=== PATIENT | male | born 1945 | race Caucasian/White ===

== ENCOUNTER 2016-05-04 15:23 | Emergency (ER) | payer MEDICARE, MEDICAID ==
[2016-05-04 15:23] VITALS: BMI 27.3
[2016-05-04 15:31] VITALS: PULSE 71; RESP 20; O2SAT 96
[2016-05-04] MEDS ORDERED: Albuterol-Ipratrop 3 mg / 0.5 (3 ml) UD IH STA (15:50)
[2016-05-04] MEDS ORDERED: Albuterol 0.083% Inhal Sol (2.5 mg/3 mL) UD IH STA (15:50)
[2016-05-04] MEDS ORDERED: Promethazine/Cod 6.25mg-10mg/5ml Syr UD PO STA (15:51)
--- NOTE | 2016-05-04 15:55 | C.PDOC ---
History Of Present Illness 71 y/o male w/PMHx of COPD presents to the ED for evaluation of URI symptoms for the past 2 weeks. Pt reports nasal congestion, productive cough with yellow sputum gradually worsen for past few days. Pt denies high fever, chills, SOB, dyspnea, wheezing, CP, palpitation, dyspnea, abdominal pain, nausea, vomiting or any other complaints. Pt is currently being evaluated by Dr Aguilar for chronic sinusitis, last antibiotic taken 1 month ago. Time Seen by Provider: 05/04/16 15:42 Chief Complaint (Nursing): Cough, Cold, Congestion History Per: Patient History/Exam Limitations: no limitations Onset/Duration Of Symptoms: Days Current Symptoms Are (Timing): Still Present Sick Contacts (Context): None Associated Symptoms: Cough, Nasal Congestion. denies: Nausea, Vomiting Severity: Mild Recent travel outside of the [place]: No Past Medical History Reviewed: Historical Data, Nursing Documentation, Vital Signs Vital Signs: Last Vital Signs Temp 97.5 F L 05/04/16 15:30 Pulse 71 05/04/16 15:30 Resp 20 05/04/16 15:30 BP 131/78 05/04/16 15:30 Pulse Ox 96 05/04/16 16:03 - Medical History PMH: CAD, Cardia Arrhythmia, Fractures (left arm), HTN, Hypercholesterolemia Surgical History: Coronary Stent (x4) - [facility] Procedures COLONOSCOPY (04/05/14) CORONAR ARTERIOGR-2 CATH (09/16/14) LEFT HEART CARDIAC CATH (09/16/14) LT HEART ANGIOCARDIOGRAM (09/16/14) TETANUS TOXOID ADMINIST (08/17/14) Family History: States: Unknown Family Hx - Social History Hx Tobacco Use: Yes Hx Alcohol Use: Yes (quit 2000) Hx Substance Use: No - Immunization History Hx Tetanus Toxoid Vaccination: Yes Hx Influenza Vaccination: No Hx Pneumococcal Vaccination: No Review Of Systems Except As Marked, All Systems Reviewed And Found Negative. Constitutional: Negative for: Fever, Chills Respiratory: Negative for: Shortness of Breath, Wheezing Gastrointestinal: Negative for: Nausea, Vomiting, Abdominal Pain Physical Exam - Physical Exam Appears: Non-toxic, No Acute Distress Skin: Warm, Dry, No Rash Head: Normacephalic Eye(s): bilateral: Normal Inspection Ear(s): Bilateral: Normal Nose: Discharge (B/L nasal congestion B/L. Mild tenderness overlying B/L maxillary sinuses. No edema, no erythema.) Oral Mucosa: Moist, No Drooling Tongue: Normal Appearing Throat: Normal, No Erythema, No Drooling Neck: Normal, Normal ROM, Supple Chest: Symmetrical Cardiovascular: Rhythm Regular, No Murmur Respiratory: No Decreased Breath Sounds, No Accessory Muscle Use, No Rales, No Rhonchi, No Stridor, Wheezing (right basilar expiratory wheezing) Gastrointestinal/Abdominal: Normal Exam, Soft, No Tenderness Back: Normal Inspection Extremity: Normal ROM, No Pedal Edema Extremity: Bilateral: Atraumatic Neurological/Psych: Oriented x3, Normal Speech ED Course And Treatment O2 Sat by Pulse Oximetry: 96 (on room air) Pulse Ox Interpretation: Normal Progress Note: Plan: CXR, nebulizer treatment, prednisone, promethazine/ codeine. On re-eavluation, pt is afebrile, hemodynamicaly stable. Non-toic. Pt reports, mod improvement in sx. PulsEOx 96% RA. ENT: no acute findings. Neck: (-) meningeal sign. Lungs: CTA B/L. BS equal B/L. ABd: benign. CXR- review and appears similar to previous study. Results discussed with pt. Pt has clinical findings c/w bronchitis, asthma exacerbation. Pt advised. ref to F/u with PMD In 2-3 days for re-eval. return if any new changes. Disposition Counseled Patient/Family Regarding: Studies Performed, Diagnosis, Need For Followup, Rx Given - Disposition Referrals: Roge Saucedo, DNP, DRESS SHOE INSPECTOR [Advanced Practice Nurse] - Disposition: HOME/ ROUTINE Disposition Time: 17:12 Condition: STABLE Additional Instructions: Encourage fluids Take medication as prescribed Follow up with PMD In 2-3 days for re-evaluation. Return to ED if any worsening or new changes. Prescriptions: Prednisone [Deltasone] 20 mg PO DAILY #3 tablet Benzonatate [Tessalon Perle] 100 mg PO TID #14 capsule Azithromycin [Zithromax] 250 mg PO DAILY #4 tab Instructions: Acute Bronchitis (ED) - Clinical Impression Clinical Impression: Bronchitis - PA / SYNTHETIC DEPARTMENT SUPERVISOR / Resident Statement MD/DO has reviewed & agrees with the documentation as recorded. - Scribe Statement The provider has reviewed the documentation as recorded by the Zia Estevez All medical record entries made by the Zia were at my direction and personally dictated by me. I have reviewed the chart and agree that the record accurately reflects my personal performance of the history, physical exam, medical decision making, and the department course for this patient. I have also personally directed, reviewed, and agree with the discharge instructions and disposition.
[2016-05-04] MEDS ORDERED: Promethazine/Cod 6.25mg-10mg/5ml Syr UD ONE (16:14)
[2016-05-04] MEDS ORDERED: Albuterol 0.083% Inhal Sol (2.5 mg/3 mL) UD ONE (16:24)
[2016-05-04] MEDS ORDERED: Albuterol-Ipratrop 3 mg / 0.5 (3 ml) UD ONE (16:25)
--- NOTE | 2016-05-04 16:40 | RAD ---
HISTORY: Cough COMPARISON: 01/30/2015 TECHNIQUE: Chest PA and lateral FINDINGS: LUNGS: Scarring versus atelectasis in the left lung base. PLEURA: No significant pleural effusion identified. No pneumothorax apparent. CARDIOVASCULAR: Normal. OSSEOUS STRUCTURES: Old rib fracture involving the 6th posterior rib on the left.The osseous structures demonstrate degenerative changes. VISUALIZED UPPER ABDOMEN: Upper abdomen is suboptimally evaluated. OTHER FINDINGS: None. IMPRESSION: Scarring versus atelectasis in the left lung base.
[2016-05-04 17:23] VITALS: BP 154/87; TEMP 98.1
== END 2016-05-04 17:28 | disposition home or self-care (01) ==
LOC: C.ER 15:23
DX: J40 Bronchitis, not specified as acute or chronic (principal)

== ENCOUNTER 2016-08-05 13:46 | Inpatient (IN) | payer MEDICARE, MEDICAID ==
[2016-08-05 13:47] VITALS: BMI 27.3
[2016-08-05] MEDS ORDERED: Aspirin 325 mg EC Tablets PO STA (14:20)
[2016-08-05 14:53] LABS: CHLORIDE 107 mmol/L (98-107)
[2016-08-05 14:54] LABS: SODIUM 140 mmol/L (132-148)
[2016-08-05 14:56] LABS: ALB/GLOB RATIO 1.2 (1.0-2.1); ALKALINE PHOSPHATASE 34 U/L (38-126); AST/SGOT 33 U/L (17-59); BLOOD UREA NITROGEN 19 mg/dL (9-20); CARBON DIOXIDE 22 mmol/L (22-30); GFR AFRICAN-AMERICAN > 60; GLUCOSE,RANDOM 103 mg/dL (75-110); TOTAL PROTEIN 6.6 g/dL (6.3-8.3)
--- NOTE | 2016-08-05 14:56 | C.PDOC ---
History Of Present Illness Patient is a 71 year old male who presents to the ER with a complaint of palpitations and chest discomfort that began while drinking coffee today. Patient has supraventricular tachycardia and was evaluated by Dr. Ellis in 01/26; he was advised to follow up for a cardiac ablation but never went. Denies SOB, nausea or vomiting. Time Seen by Provider: 08/05/16 14:02 Chief Complaint (Nursing): Chest Pain History Per: Patient History/Exam Limitations: no limitations Onset/Duration Of Symptoms: Hrs Current Symptoms Are (Timing): Still Present Context: Food (Coffee) Associated Symptoms: denies: Nausea, Dyspnea, Other (Vomiting) Modifying Factors: None Exacerbating Factors: None Alleviating Factors: None Recent travel outside of the [place]: No Past Medical History Reviewed: Historical Data, Nursing Documentation, Vital Signs Vital Signs: Last Vital Signs Temp 98.1 F 08/05/16 14:05 Pulse 61 08/05/16 15:32 Resp 16 08/05/16 15:32 BP 103/61 08/05/16 15:32 Pulse Ox 100 08/05/16 15:32 - Medical History PMH: CAD, Cardia Arrhythmia, Fractures (left arm), HTN, Hypercholesterolemia Surgical History: Coronary Stent (x4) - [facility] Procedures COLONOSCOPY (04/05/14) CORONAR ARTERIOGR-2 CATH (09/16/14) LEFT HEART CARDIAC CATH (09/16/14) LT HEART ANGIOCARDIOGRAM (09/16/14) TETANUS TOXOID ADMINIST (08/17/14) Family History: States: Unknown Family Hx - Social History Hx Tobacco Use: Yes Hx Alcohol Use: Yes (quit 2000) Hx Substance Use: No - Immunization History Hx Tetanus Toxoid Vaccination: Yes Hx Influenza Vaccination: No Hx Pneumococcal Vaccination: No Review Of Systems Cardiovascular: Positive for: Chest Pain, Palpitations Respiratory: Negative for: Shortness of Breath Gastrointestinal: Negative for: Nausea, Vomiting Physical Exam - Physical Exam Appears: Non-toxic, No Acute Distress Skin: Normal Color, Warm, Dry Head: Atraumatic, Normacephalic Oral Mucosa: Moist Chest: Symmetrical, No Tenderness Cardiovascular: Rhythm Regular, No Murmur Respiratory: Normal Breath Sounds, No Rales, No Rhonchi, No Wheezing Gastrointestinal/Abdominal: Soft, No Tenderness Neurological/Psych: Oriented x3, Normal Speech, Normal Cognition ED Course And Treatment - Laboratory Results Result Diagrams: 08/05/16 14:30 08/05/16 14:30 Lab Interpretation: Normal (trop neg.) ECG: Interpreted By Me ECG Rhythm: Sinus Rhythm ECG Interpretation: Normal Rate From EC O2 Sat by Pulse Oximetry: 96 Pulse Ox Interpretation: Normal - Radiology CXR: Interpreted by Me CXR Interpretation: Yes: No Acute Disease Progress Note: EKG ordered. Aspirin and lopressor administered. 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 Medical Decision Making Medical Decision Making: prob recurrent SVT, h/o same referred to ablation by Dr. Nguyen 10/27 clean coronaries 10/27 normal echo 07/26 Disposition Doctor Will See Patient In The: Hospital Counseled Patient/Family Regarding: Studies Performed, Diagnosis - Disposition Disposition: HOSPITALIZED Disposition Time: 15:18 Condition: GOOD - Clinical Impression Clinical Impression: Chest pain - Scribe Statement The provider has reviewed the documentation as recorded by the Scribjuan Osborn All medical record entries made by the Robertibjuan were at my direction and personally dictated by me. I have reviewed the chart and agree that the record accurately reflects my personal performance of the history, physical exam, medical decision making, and the department course for this patient. I have also personally directed, reviewed, and agree with the discharge instructions and disposition.
[2016-08-05 14:57] LABS: ALT/SGPT 33 U/L (21-72); BASO % 0.5 % (0.0-2.0); EOS # 0.1 K/uL (0.0-0.7); EOS % 1.3 % (0.0-4.0); HEMATOCRIT 46.5 % (35.0-51.0); LYMPH # 4.2 K/uL (1.0-4.3); LYMPH % 58.5 % (20.0-40.0); MEAN CELL VOLUME 84.6 fL (80.0-94.0); MEAN CORPUSCULAR HEMOGLOBIN 27.6 pg (27.0-31.0); MEAN CORPUSCULAR HGB CONC 32.6 g/dL (33.0-37.0); MEAN PLATELET VOLUME 8.3 fL (7.2-11.7); MONO # 0.4 K/uL (0.0-0.8); MONO % 5.3 % (0.0-10.0); NRBC % 0.8 % (0.0-2.0); RED CELL DISTRIBUTION WIDTH 14.2 % (11.5-14.5); WHITE BLOOD COUNT 7.2 K/uL (4.8-10.8)
[2016-08-05] MEDS ORDERED: Lidocaine 1% w Epi 1:100,000 Inj ONE (14:57)
[2016-08-05 14:58] LABS: PLATELET COUNT 88 K/uL (130-400)
[2016-08-05 15:05] LABS: POTASSIUM 4.2 mmol/L (3.6-5.2)
[2016-08-05 15:30] LABS: EOSINOPHIL 1 % (0-4); REACTIVE LYMPHOCYTES 4 % (0-0); TOTAL CELLS COUNTED 100
[2016-08-05 15:31] LABS: NEUTROPHIL 37 % (50-75)
--- NOTE | 2016-08-05 17:05 | RAD ---
PROCEDURE: CHEST RADIOGRAPH, 1 VIEW HISTORY: SOB COMPARISON: 05/04/2016 FINDINGS: LUNGS: Linear scar/atelectasis at left lung base. No pulmonary infiltrate. PLEURA: No pneumothorax or pleural fluid seen. CARDIOVASCULAR: Normal. OSSEOUS STRUCTURES: No significant abnormalities. VISUALIZED UPPER ABDOMEN: Normal. OTHER FINDINGS: None. IMPRESSION: No active disease.
[2016-08-06] MEDS: Enoxaparin 40 mg Syringe SC SCH ×2 (01:20→09:39)
--- NOTE | 2016-08-06 08:08 | CP.PCM.CON ---
History of Present Illness - History of Present Illness History of Present Illness: Patient seen/examined. full consult to follow. patient developed chest pain/dyspnea. had a sensation of palpitations. troponion number 2 elevated. Patient has a previous history of CAD (non dominant circumflex) and SVT. he was recommended to have ablation, but refused and has followed up with his primary joint terminal attack controller (Dr. Raines). Currently chest pain free. Given elevated troponin, likely needs repeat ischemic evaluation. The patient wishes further management with his joint terminal attack controller Dr. Raines. The risks and benefits were explained in detail to the patient. Past Patient History - Infectious Disease Hx of Infectious Diseases: None - Past Medical History & Family History Past Medical History?: Yes - Past Social History Smoking Status: Former Smoker - CARDIAC Hx Cardiac Disorders: Yes Hx Angina: Yes Hx Cardia Arrhythmia: Yes Hx Heart Attack: Yes Hx Hypercholesterolemia: Yes Hx Hypertension: Yes - PULMONARY Hx Respiratory Disorders: Yes Hx Asthma: Yes (used to have while smoking 17 years ago) - NEUROLOGICAL Hx Neurological Disorder: Yes Hx Dizziness: Yes Hx Vertigo: Yes Other/Comment: Near syncope - HEENT Hx HEENT Problems: Yes Other/Comment: Left ear constantly ringing - RENAL Hx Chronic Kidney Disease: No - ENDOCRINE/METABOLIC Hx Endocrine Disorders: No - HEMATOLOGICAL/ONCOLOGICAL Hx Blood Disorders: Yes Hx Anemia: Yes (Iron infusion) Other/Comment: B12 insufficiency. - INTEGUMENTARY Hx Dermatological Problems: No - MUSCULOSKELETAL/RHEUMATOLOGICAL Hx Musculoskeletal Disorders: Yes Hx Arthritis: Yes Hx Back Pain: Yes (lower back pain) Hx Falls: Yes Hx Fractures: Yes (left arm) - GASTROINTESTINAL Hx Gastrointestinal Disorders: No Hx Gastroesophageal Reflux: Yes Hx Hemorrhoids: Yes - GENITOURINARY/GYNECOLOGICAL Hx Genitourinary Disorders: Yes Hx Prostate Problems: Yes (pt denies) - PSYCHIATRIC Hx Substance Use: No - SURGICAL HISTORY Hx Surgeries: Yes Hx Coronary Stent: Yes (x4) Other/Comment: Hemoroidectomy, hernia removal, testical sx, L wrist sx - ANESTHESIA Hx Anesthesia: Yes Hx Anesthesia Reactions: No Hx Malignant Hyperthermia: No Meds Allergies/Adverse Reactions: Allergies Allergy/AdvReac Type Severity Reaction Status Date / Time No Known Allergies Allergy Verified 08/05/16 13:58 - Medications Medications: Current Medications Aspirin (Ecotrin) 81 mg PO DAILY [facility] Baclofen (Lioresal) 10 mg PO DAILY [facility] Benzonatate (Tessalon Perles) 100 mg PO TID [facility] Carvedilol (Coreg) 6.25 mg PO BID [facility] Enoxaparin Sodium (Lovenox) 40 mg SC DAILY [facility] Last Admin: 08/06/16 01:20 Dose: 40 mg Ergocalciferol (Drisdol 50,000 Intl Units Cap) 1 cap PO QWK [facility] Furosemide (Lasix) 20 mg PO DAILY [facility] Gabapentin (Neurontin) 300 mg PO TID [facility] Home Med (Cevimeline Hcl [Cevimeline Hcl]) 30 mg PO DAILY [facility] Lactic Acid (Lac-Hydrin 12% Lotion (225 G)) 0 gm TOP DAILY [facility] Meclizine HCl (Antivert) 25 mg PO Q6 PRN PRN Reason: Dizziness Mupirocin (Bactroban Ointment) 0 gm TOP BID [facility] Nitroglycerin (Nitrostat Sl Tab) 0.4 mg SL Q5MIN PRN PRN Reason: pain Pentoxifylline (Pentoxil) 400 mg PO DAILY [facility] Prednisone (Prednisone Tab) 20 mg PO DAILY [facility] Rosuvastatin Calcium (Crestor) 5 mg PO HS [facility] Tamsulosin HCl (Flomax) 0.4 mg PO DAILY [facility] Tramadol HCl (Ultram) 50 mg PO TID PRN PRN Reason: Pain, moderate (4-7) Results - Vital Signs Recent Vital Signs: Last Vital Signs Temp 97.4 F L 08/06/16 05:00 Pulse 55 L 08/06/16 05:00 Resp 20 08/06/16 05:00 BP 121/73 08/06/16 05:00 Pulse Ox 98 08/06/16 05:00 - Labs Result Diagrams: 08/05/16 14:30 08/05/16 14:30 Labs: Laboratory Results - last 24 hr 08/06/16 00:26 Total Creatine Kinase 73 CK-MB (Mass) 2.56 Troponin I, Quant 0.2900 H*
--- NOTE | 2016-08-06 08:09 | CP.PCM.CON ---
History of Present Illness - History of Present Illness History of Present Illness: I was asked to see patient by Dr. Muller. Patient is a 71 year old male with history of HTN, hypercholesterolemia , CAD, and SVT who presents with palpitaitons. The patient describes the onset of rapid heart rate which occurred at rest. The patient states symptoms are progressive and associayted with dyspnea. He has previous documented SVT and was scheduled for an ablation. The patient refused and has continued follow up with his primary coat feller Dr. Raines. The patient states he feels well currently. Review of Systems - Constitutional Constitutional: absent: As Per HPI, Anorexia, Chills, Daytime Sleepiness, Excessive Sweating, Fatigue, Fever, Frequent Falls, Headache, Increased Appetite , Lethargy, Malaise, Night Sweats, Snoring, Sleep Apnea, Weight Gain, Weight Loss, Weakness, Other - EENT Eyes: absent: As Per HPI, Blind Spots, Blurred Vision, Change in Vision, Decreased Night Vision, Diplopia, Discharge, Dry Eye, Exophthalmos, Floaters, Irritation, Itchy Eyes, Loss of Peripheral Vision, Pain, Photophobia, Requires Corrective Lenses, Sees Flashes, Spots in Vision, Tunnel Vision, Other Visual Disturbances, Loss of Vision, Other Ears: absent: As Per HPI, Decreased Hearing, Ear Discharge, Ear Pain, Tinnitus, Abnormal Hearing, Disequilibrium, Dizziness, Other Nose/Mouth/Throat: absent: As Per HPI, Epistaxis, Nasal Congestion, Nasal Discharge, Nasal Obstruction, Nasal Trauma, Nose Pain, Post Nasal Drip, Sinus Pain, Sinus Pressure, Bleeding Gums, Change in Voice, Dental Pain, Dry Mouth, Dysphagia, Halitosis, Hoarsness, Lip Swelling, Mouth Lesions, Mouth Pain, Odynophagia, Sore Throat, Throat Swelling, Tongue Swelling, Facial Pain, Neck Pain, Neck Mass, Other - Cardiovascular Cardiovascular: Dyspnea, Palpitations - Respiratory Respiratory: Dyspnea - Gastrointestinal Gastrointestinal: absent: As Per HPI, Abdominal Pain, Belching, Bloating, Change in Bowel Habits, Change in Stool Character, Coffee Ground Emesis, Constipation, Cramping, Diarrhea, Dyspepsia, Dysphagia, Early Satiety, Excessive Flatus, Fecal Incontinence, Heartburn, Hematemesis, Hematochezia, Loose Stools, Melena, Nausea, Odynophagia, Temesmus, Vomiting, Other - Genitourinary Genitourinary: absent: As Per HPI, Change in Urinary Stream, Difficulty Urinating, Dysuria, Flank Pain, Hematuria, Pyuria, Nocturia, Urinary Incontinence, Urinary Frequency, Urinary Hesitance, Urinary Urgency, Voiding Freq/Small Amts, Freq UTI, Hx Renal/Bladder Calculi, Hx /Renal Surgery, Bladder Distension, Other - Musculoskeletal Musculoskeletal: absent: As Per HPI, Abnormal Gait, Arthralgias, Atrophy, Back Pain, Deformity, Joint Swelling, Limited Range of Motion, Loss of Height, Muscle Cramps, Muscle Weakness, Myalgias, Neck Pain, Numbness, Radiating Pain into Limb, Stiffness, Tingling, Other - Integumentary Integumentary: absent: As Per HPI, Acne, Alopecia, Bleeding Lesions, Change in Hair, Change in Nails, Change in Pigmentation, Changing Lesions, Dry Skin, Erythema, Furuncle, Hirsutism, Lesions, New Lesions, Non-Healing Lesions, Photosensitivity, Pruritus, Rash, Skin Pain, Skin Ulcer, Sores, Striae, Swelling , Unusual Bruising, Wounds, Jaundice, Other - Neurological Neurological: absent: As Per HPI, Abnormal Gait, Abnormal Hearing, Abnormal Movements, Abnormal Speech, Behavioral Changes, Burning Sensations, Confusion, Convulsions, Disequilibrium, Dizziness, Numbness, Focal Weakness, Frequent Falls , Headaches, Lack of Coordination, Loss of Vision, Memory Loss, Paresthesias, Radicular Pain, Restless Legs, Sensory Deficit, Syncope, Tingling, Tremor, Vertigo, Weakness, Other Visual Disturbances, Other - Psychiatric Psychiatric: absent: As Per HPI, Abnormal Sleep Pattern, Anhedonia, Anxiety, Auditory Hallucinations, Behavioral Changes, Change in Appetite, Change in Libido, Confusion, Depression, Difficulty Concentrating, Hallucinations, Homicidal Ideation, Hopelessness, Irritability, Memory Loss, Mood Swings, Panic Attacks, Paranoia, Suicidal Ideation, Visual Hallucinations, Tactile Hallucinations, Other - Endocrine Endocrine: absent: As Per HPI, Change in Body Appearance, Change in Libido, Cold Intolorance, Deepening of Voice, Excessive Sweating, Fatigue, Flushing, Heat Intolorance, Increase in Ring/Shoe/Hat Size, Palpitations, Polydipsia, Polyphagia, Polyuria, Other - Hematologic/Lymphatic Hematologic: absent: As Per HPI, Easy Bleeding, Easy Bruising, Lymphadenopathy, Other Past Patient History - Infectious Disease Hx of Infectious Diseases: None - Past Medical History & Family History Past Medical History?: Yes - Past Social History Smoking Status: Former Smoker - CARDIAC Hx Cardiac Disorders: Yes Hx Angina: Yes Hx Cardia Arrhythmia: Yes Hx Heart Attack: Yes Hx Hypercholesterolemia: Yes Hx Hypertension: Yes - PULMONARY Hx Respiratory Disorders: Yes Hx Asthma: Yes (used to have while smoking 17 years ago) - NEUROLOGICAL Hx Neurological Disorder: Yes Hx Dizziness: Yes Hx Vertigo: Yes Other/Comment: Near syncope - HEENT Hx HEENT Problems: Yes Other/Comment: Left ear constantly ringing - RENAL Hx Chronic Kidney Disease: No - ENDOCRINE/METABOLIC Hx Endocrine Disorders: No - HEMATOLOGICAL/ONCOLOGICAL Hx Blood Disorders: Yes Hx Anemia: Yes (Iron infusion) Other/Comment: B12 insufficiency. - INTEGUMENTARY Hx Dermatological Problems: No - MUSCULOSKELETAL/RHEUMATOLOGICAL Hx Musculoskeletal Disorders: Yes Hx Arthritis: Yes Hx Back Pain: Yes (lower back pain) Hx Falls: Yes Hx Fractures: Yes (left arm) - GASTROINTESTINAL Hx Gastrointestinal Disorders: No Hx Gastroesophageal Reflux: Yes Hx Hemorrhoids: Yes - GENITOURINARY/GYNECOLOGICAL Hx Genitourinary Disorders: Yes Hx Prostate Problems: Yes (pt denies) - PSYCHIATRIC Hx Substance Use: No - SURGICAL HISTORY Hx Surgeries: Yes Hx Coronary Stent: Yes (x4) Other/Comment: Hemoroidectomy, hernia removal, testical sx, L wrist sx - ANESTHESIA Hx Anesthesia: Yes Hx Anesthesia Reactions: No Hx Malignant Hyperthermia: No Meds Allergies/Adverse Reactions: Allergies Allergy/AdvReac Type Severity Reaction Status Date / Time No Known Allergies Allergy Verified 08/05/16 13:58 - Medications Medications: Current Medications Aspirin (Ecotrin) 81 mg PO DAILY [facility] Baclofen (Lioresal) 10 mg PO DAILY [facility] Benzonatate (Tessalon Perles) 100 mg PO TID [facility] Carvedilol (Coreg) 6.25 mg PO BID [facility] Enoxaparin Sodium (Lovenox) 40 mg SC DAILY [facility] Last Admin: 08/06/16 01:20 Dose: 40 mg Ergocalciferol (Drisdol 50,000 Intl Units Cap) 1 cap PO QWK [facility] Furosemide (Lasix) 20 mg PO DAILY [facility] Gabapentin (Neurontin) 300 mg PO TID [facility] Home Med (Cevimeline Hcl [Cevimeline Hcl]) 30 mg PO DAILY [facility] Lactic Acid (Lac-Hydrin 12% Lotion (225 G)) 0 gm TOP DAILY [facility] Meclizine HCl (Antivert) 25 mg PO Q6 PRN PRN Reason: Dizziness Mupirocin (Bactroban Ointment) 0 gm TOP BID [facility] Nitroglycerin (Nitrostat Sl Tab) 0.4 mg SL Q5MIN PRN PRN Reason: pain Pentoxifylline (Pentoxil) 400 mg PO DAILY [facility] Prednisone (Prednisone Tab) 20 mg PO DAILY [facility] Rosuvastatin Calcium (Crestor) 5 mg PO HS [facility] Tamsulosin HCl (Flomax) 0.4 mg PO DAILY [facility] Tramadol HCl (Ultram) 50 mg PO TID PRN PRN Reason: Pain, moderate (4-7) Physical Exam - Constitutional Appears: Non-toxic - Head Exam Head Exam: NORMAL INSPECTION - Eye Exam Eye Exam: Normal appearance - ENT Exam ENT Exam: Mucous Membranes Moist - Neck Exam Neck exam: Positive for: Full Rom - Respiratory Exam Respiratory Exam: Decreased Breath Sounds - Cardiovascular Exam Cardiovascular Exam: REGULAR RHYTHM - GI/Abdominal Exam GI & Abdominal Exam: Normal Bowel Sounds - Rectal Exam Rectal Exam: Deferred - Extremities Exam Extremities exam: Positive for: pedal edema - Back Exam Back exam: NORMAL INSPECTION - Neurological Exam Neurological exam: Alert, Oriented x3 - Psychiatric Exam Psychiatric exam: Normal Affect - Skin Skin Exam: Normal Color Results - Vital Signs Recent Vital Signs: Last Vital Signs Temp 97.4 F L 08/06/16 05:00 Pulse 55 L 08/06/16 05:00 Resp 20 08/06/16 05:00 BP 121/73 08/06/16 05:00 Pulse Ox 98 08/06/16 05:00 - Labs Result Diagrams: 08/05/16 14:30 08/05/16 14:30 Labs: Laboratory Results - last 24 hr 08/06/16 00:26 Total Creatine Kinase 73 CK-MB (Mass) 2.56 Troponin I, Quant 0.2900 H* - EKG Data EKG Interpreted by: Myself Assessment & Plan (1) CAD (coronary artery disease) Assessment and Plan: patient has known CAD. will need to monitor given elevated troponin. Ideally he will require further work up however the patient wishes to follow up with Dr. Raines. i have explained the risks and benefits with the patient. Status: Acute (2) HTN (hypertension) Assessment and Plan: blood pressure control Status: Acute (3) NSTEMI (non-ST elevated myocardial infarction) Assessment and Plan: may signify myocardial ischemia. this occurred previously when patient had SVT. cardiac cath revealed small vessel RCA disease Status: Acute (4) SVT (supraventricular tachycardia) Status: Acute
[2016-08-06] MEDS ORDERED: CEVIMELINE HCL 30 MG PO SCH (10:00)
[2016-08-06] MEDS: Ammonium Lactate 12% Lotion (225 g) TOP SCH (10:01)
--- NOTE | 2016-08-06 10:03 | CARD ---
APPROVED REPORT EKG Measurement Heart [id number] <Conclusion> Normal sinus rhythm Inferior infarct, age undetermined Abnormal ECG
--- NOTE | 2016-08-06 22:56 | CP.PCM.HP ---
History of Present Illness - History of Present Illness History of Present Illness: Patient is a 71 year old male who presents to the ER with a complaint of palpitations and chest discomfort that began while drinking coffee today. Patient has supraventricular tachycardia and was evaluated by Dr. Ellis in 01/26; he was advised to follow up for a cardiac ablation but never went. Denies SOB, nausea or vomiting. Past Patient History - Infectious Disease Hx of Infectious Diseases: None - Past Medical History & Family History Past Medical History?: Yes - Past Social History Smoking Status: Former Smoker - CARDIAC Hx Cardiac Disorders: Yes Hx Angina: Yes Hx Cardia Arrhythmia: Yes Hx Heart Attack: Yes Hx Hypercholesterolemia: Yes Hx Hypertension: Yes - PULMONARY Hx Respiratory Disorders: Yes Hx Asthma: Yes (used to have while smoking 17 years ago) - NEUROLOGICAL Hx Neurological Disorder: Yes Hx Dizziness: Yes Hx Vertigo: Yes Other/Comment: Near syncope - HEENT Hx HEENT Problems: Yes Other/Comment: Left ear constantly ringing - RENAL Hx Chronic Kidney Disease: No - ENDOCRINE/METABOLIC Hx Endocrine Disorders: No - HEMATOLOGICAL/ONCOLOGICAL Hx Blood Disorders: Yes Hx Anemia: Yes (Iron infusion) Other/Comment: B12 insufficiency. - INTEGUMENTARY Hx Dermatological Problems: No - MUSCULOSKELETAL/RHEUMATOLOGICAL Hx Musculoskeletal Disorders: Yes Hx Arthritis: Yes Hx Back Pain: Yes (lower back pain) Hx Falls: Yes Hx Fractures: Yes (left arm) - GASTROINTESTINAL Hx Gastrointestinal Disorders: No Hx Gastroesophageal Reflux: Yes Hx Hemorrhoids: Yes - GENITOURINARY/GYNECOLOGICAL Hx Genitourinary Disorders: Yes Hx Prostate Problems: Yes (pt denies) - PSYCHIATRIC Hx Substance Use: No - SURGICAL HISTORY Hx Surgeries: Yes Hx Coronary Stent: Yes (x4) Other/Comment: Hemoroidectomy, hernia removal, testical sx, L wrist sx - ANESTHESIA Hx Anesthesia: Yes Hx Anesthesia Reactions: No Hx Malignant Hyperthermia: No Meds Allergies/Adverse Reactions: Allergies Allergy/AdvReac Type Severity Reaction Status Date / Time No Known Allergies Allergy Verified 08/05/16 13:58 Results - Vital Signs Recent Vital Signs: Last Vital Signs Temp 97.8 F 08/06/16 15:08 Pulse 88 08/06/16 15:08 Resp 20 08/06/16 15:08 BP 120/69 08/06/16 15:08 Pulse Ox 98 08/06/16 15:08 - Labs Result Diagrams: 08/05/16 14:30 08/05/16 14:30 Labs: Laboratory Results - last 24 hr 08/06/16 08/06/16 00:26 07:14 Total Creatine Kinase 73 71 CK-MB (Mass) 2.56 2.56 Troponin I, Quant 0.2900 H* 0.2730 H*
--- NOTE | 2016-08-06 22:57 | CP.PCM.PN ---
Subjective - Date & Time of Evaluation Date of Evaluation: 08/06/16 Time of Evaluation: 19:15 - Subjective Subjective: patient developed chest pain/dyspnea. had a sensation of palpitations. troponion number 2 elevated. Patient has a previous history of CAD (non dominant circumflex) and SVT. he was recommended to have ablation, but refused and has followed up with his primary presidential support specialist (Dr. Raines). Currently chest pain free. Given elevated troponin, likely needs repeat ischemic evaluation. The patient wishes further management with his presidential support specialist Dr. Raines. The risks and benefits were explained in detail to the patient. Objective - Vital Signs/Intake and Output Vital Signs (last 24 hours): Temp Pulse Resp BP Pulse Ox 97.8 F 88 20 120/69 98 08/06/16 15:08 08/06/16 15:08 08/06/16 15:08 08/06/16 15:08 08/06/16 15:08 Intake and Output: 08/06/16 08/07/16 18:59 06:59 Intake Total 480 Balance 480 - Medications Medications: Current Medications Aspirin (Ecotrin) 81 mg PO DAILY [facility] Last Admin: 08/06/16 09:38 Dose: 81 mg Baclofen (Lioresal) 10 mg PO DAILY [facility] Last Admin: 08/06/16 09:39 Dose: 10 mg Benzonatate (Tessalon Perles) 100 mg PO TID [facility] Last Admin: 08/06/16 17:15 Dose: 100 mg Carvedilol (Coreg) 6.25 mg PO BID [facility] Last Admin: 08/06/16 17:15 Dose: 6.25 mg Enoxaparin Sodium (Lovenox) 40 mg SC DAILY [facility] Last Admin: 08/06/16 09:39 Dose: 40 mg Ergocalciferol (Drisdol 50,000 Intl Units Cap) 1 cap PO QWK [facility] Furosemide (Lasix) 20 mg PO DAILY [facility] Last Admin: 08/06/16 09:38 Dose: 20 mg Gabapentin (Neurontin) 300 mg PO TID [facility] Last Admin: 08/06/16 17:15 Dose: 300 mg Home Med (Cevimeline Hcl [Cevimeline Hcl]) 30 mg PO DAILY [facility] Lactic Acid (Lac-Hydrin 12% Lotion (225 G)) 0 gm TOP DAILY [facility] Last Admin: 08/06/16 10:01 Dose: 1 applic Meclizine HCl (Antivert) 25 mg PO Q6 PRN PRN Reason: Dizziness Mupirocin (Bactroban Ointment) 0 gm TOP BID [facility] Last Admin: 08/06/16 17:16 Dose: 1 applic Nitroglycerin (Nitrostat Sl Tab) 0.4 mg SL Q5MIN PRN PRN Reason: pain Pentoxifylline (Pentoxil) 400 mg PO DAILY [facility] Last Admin: 08/06/16 09:39 Dose: 400 mg Prednisone (Prednisone Tab) 20 mg PO DAILY [facility] Last Admin: 08/06/16 09:38 Dose: 20 mg Rosuvastatin Calcium (Crestor) 5 mg PO HS [facility] Last Admin: 08/06/16 21:37 Dose: 5 mg Tamsulosin HCl (Flomax) 0.4 mg PO DAILY [facility] Last Admin: 08/06/16 09:38 Dose: 0.4 mg Tramadol HCl (Ultram) 50 mg PO TID PRN PRN Reason: Pain, moderate (4-7)
--- NOTE | 2016-08-07 09:03 | CP.PCM.PN ---
Subjective - Date & Time of Evaluation Date of Evaluation: 08/07/16 Time of Evaluation: 08:40 - Subjective Subjective: Pt seen & evalauted, s/p CAD with 4 stents came in with chest pain with positive tronpinins, pt agreed for Cardiac cath, pt underwent cardiac cath which shows small coronaries, most likley source of Mi, pt is placed on Berlenta , denies any chest pain now Objective - Vital Signs/Intake and Output Vital Signs (last 24 hours): Temp Pulse Resp BP Pulse Ox 97.5 F L 59 L 20 129/81 95 08/07/16 08:53 08/07/16 08:53 08/07/16 08:53 08/07/16 08:53 08/07/16 08:53 Intake and Output: 08/07/16 08/07/16 06:59 18:59 Intake Total 240 Balance 240 - Medications Medications: Current Medications Aspirin (Ecotrin) 81 mg PO DAILY [facility] Last Admin: 08/06/16 09:38 Dose: 81 mg Baclofen (Lioresal) 10 mg PO DAILY [facility] Last Admin: 08/06/16 09:39 Dose: 10 mg Benzonatate (Tessalon Perles) 100 mg PO TID [facility] Last Admin: 08/06/16 17:15 Dose: 100 mg Carvedilol (Coreg) 6.25 mg PO BID [facility] Last Admin: 08/06/16 17:15 Dose: 6.25 mg Enoxaparin Sodium (Lovenox) 40 mg SC DAILY [facility] Last Admin: 08/06/16 09:39 Dose: 40 mg Ergocalciferol (Drisdol 50,000 Intl Units Cap) 1 cap PO QWK [facility] Furosemide (Lasix) 20 mg PO DAILY [facility] Last Admin: 08/06/16 09:38 Dose: 20 mg Gabapentin (Neurontin) 300 mg PO TID [facility] Last Admin: 08/06/16 17:15 Dose: 300 mg Home Med (Cevimeline Hcl [Cevimeline Hcl]) 30 mg PO DAILY [facility] Lactic Acid (Lac-Hydrin 12% Lotion (225 G)) 0 gm TOP DAILY [facility] Last Admin: 08/06/16 10:01 Dose: 1 applic Meclizine HCl (Antivert) 25 mg PO Q6 PRN PRN Reason: Dizziness Mupirocin (Bactroban Ointment) 0 gm TOP BID [facility] Last Admin: 08/06/16 17:16 Dose: 1 applic Nitroglycerin (Nitrostat Sl Tab) 0.4 mg SL Q5MIN PRN PRN Reason: pain Pentoxifylline (Pentoxil) 400 mg PO DAILY [facility] Last Admin: 08/06/16 09:39 Dose: 400 mg Prednisone (Prednisone Tab) 20 mg PO DAILY [facility] Last Admin: 08/06/16 09:38 Dose: 20 mg Rosuvastatin Calcium (Crestor) 5 mg PO HS [facility] Last Admin: 08/06/16 21:37 Dose: 5 mg Tamsulosin HCl (Flomax) 0.4 mg PO DAILY [facility] Last Admin: 08/06/16 09:38 Dose: 0.4 mg Tramadol HCl (Ultram) 50 mg PO TID PRN PRN Reason: Pain, moderate (4-7) - Constitutional Appears: No Acute Distress - Head Exam Head Exam: ATRAUMATIC, NORMAL INSPECTION, NORMOCEPHALIC - Eye Exam Eye Exam: EOMI, Normal appearance, PERRL Pupil Exam: NORMAL ACCOMODATION, PERRL - ENT Exam ENT Exam: Mucous Membranes Moist, Normal Exam - Neck Exam Neck Exam: Full ROM, Normal Inspection. absent: Lymphadenopathy - Respiratory Exam Respiratory Exam: Clear to Ausculation Bilateral, NORMAL BREATHING PATTERN - Cardiovascular Exam Cardiovascular Exam: REGULAR RHYTHM, +S1, +S2. absent: Murmur - GI/Abdominal Exam GI & Abdominal Exam: Soft, Normal Bowel Sounds. absent: Tenderness - Rectal Exam Rectal Exam: Deferred Assessment and Plan (1) CAD (coronary artery disease) Status: Acute (2) Chest pain Status: Acute (3) HTN (hypertension) Status: Acute (4) NSTEMI (non-ST elevated myocardial infarction) Status: Acute
[2016-08-07] MEDS: Ammonium Lactate 12% Lotion (225 g) TOP SCH (10:05)
[2016-08-07] MEDS: Enoxaparin 40 mg Syringe SC SCH (10:06)
--- NOTE | 2016-08-07 12:37 | CARD ---
APPROVED REPORT EKG Measurement Heart [id number] <Conclusion> Sinus rhythm with occasional premature ventricular complexes Inferior infarct, age undetermined Abnormal ECG
[2016-08-07 15:02] LABS: HEMATOCRIT 47.6 % (35.0-51.0); MEAN CORPUSCULAR HEMOGLOBIN 27.5 pg (27.0-31.0); MEAN CORPUSCULAR HGB CONC 32.3 g/dL (33.0-37.0); MEAN PLATELET VOLUME 8.6 fL (7.2-11.7); RED CELL DISTRIBUTION WIDTH 14.2 % (11.5-14.5); WHITE BLOOD COUNT 8.3 K/uL (4.8-10.8)
[2016-08-07] MEDS ORDERED: Midazolam 2 MG/2 ML VIAL ONE (16:33)
--- NOTE | 2016-08-07 19:19 | CP.PCM.PN ---
Subjective - Date & Time of Evaluation Date of Evaluation: 08/07/16 Time of Evaluation: 17:00 - Subjective Subjective: cardaic catheterization performed. Left circumflex 80% (dominant vessel). RCA 95% (small vessel). LVEF 55%. Plan: Patient's NSTEMI is likley form the small non dominant RCA. He will require intervention of the left circumflex which is a dominant vessel. will start Brilinta 90 mg BID. Patient can be discharged in the am. He will be scheduled electively for intervention of the left circumflex artery. Objective - Vital Signs/Intake and Output Vital Signs (last 24 hours): Temp Pulse Resp BP Pulse Ox 97.7 F 67 20 135/64 95 08/07/16 17:45 08/07/16 17:45 08/07/16 17:45 08/07/16 17:45 08/07/16 17:45 - Medications Medications: Current Medications Aspirin (Ecotrin) 81 mg PO DAILY [facility] Last Admin: 08/07/16 10:04 Dose: 81 mg Baclofen (Lioresal) 10 mg PO DAILY [facility] Last Admin: 08/07/16 10:05 Dose: 10 mg Benzonatate (Tessalon Perles) 100 mg PO TID [facility] Last Admin: 08/07/16 18:55 Dose: 100 mg Carvedilol (Coreg) 6.25 mg PO BID [facility] Last Admin: 08/07/16 18:55 Dose: 6.25 mg Enoxaparin Sodium (Lovenox) 40 mg SC DAILY [facility] Last Admin: 08/07/16 10:06 Dose: 40 mg Ergocalciferol (Drisdol 50,000 Intl Units Cap) 1 cap PO QWK [facility] Furosemide (Lasix) 20 mg PO DAILY [facility] Last Admin: 08/07/16 10:04 Dose: 20 mg Gabapentin (Neurontin) 300 mg PO TID [facility] Last Admin: 08/07/16 18:55 Dose: 300 mg Home Med (Cevimeline Hcl [Cevimeline Hcl]) 30 mg PO DAILY [facility] Lactic Acid (Lac-Hydrin 12% Lotion (225 G)) 0 gm TOP DAILY [facility] Last Admin: 08/07/16 10:05 Dose: 1 applic Meclizine HCl (Antivert) 25 mg PO Q6 PRN PRN Reason: Dizziness Mupirocin (Bactroban Ointment) 0 gm TOP BID [facility] Last Admin: 08/07/16 18:56 Dose: 1 applic Nitroglycerin (Nitrostat Sl Tab) 0.4 mg SL Q5MIN PRN PRN Reason: pain Pentoxifylline (Pentoxil) 400 mg PO DAILY [facility] Last Admin: 08/07/16 10:04 Dose: 400 mg Prednisone (Prednisone Tab) 20 mg PO DAILY [facility] Last Admin: 08/07/16 10:04 Dose: 20 mg Rosuvastatin Calcium (Crestor) 5 mg PO HS [facility] Last Admin: 08/06/16 21:37 Dose: 5 mg Tamsulosin HCl (Flomax) 0.4 mg PO DAILY [facility] Last Admin: 08/07/16 10:04 Dose: 0.4 mg Tramadol HCl (Ultram) 50 mg PO TID PRN PRN Reason: Pain, moderate (4-7) Assessment and Plan (1) CAD (coronary artery disease) Status: Acute (2) HTN (hypertension) Status: Acute (3) NSTEMI (non-ST elevated myocardial infarction) Status: Acute (4) SVT (supraventricular tachycardia) Status: Acute
[2016-08-08 08:15] VITALS: BP 140/84; PULSE 68; RESP 17; TEMP 97.8; O2SAT 96
[2016-08-08] MEDS: Enoxaparin 40 mg Syringe SC SCH (10:00)
[2016-08-08] MEDS: Ammonium Lactate 12% Lotion (225 g) TOP SCH (10:03)
--- NOTE | 2016-08-08 11:38 | CP.PCM.PN ---
Subjective - Date & Time of Evaluation Date of Evaluation: 08/08/16 Time of Evaluation: 11:00 - Subjective Subjective: Pt seen and examined today , denies any chest pain , sob, palpitations, dizziness s/p cardiac cath yesterday by Dr. Pierson -Left circumflex 80% (dominant vessel). RCA 95% (small vessel). LVEF 55%. Objective - Vital Signs/Intake and Output Vital Signs (last 24 hours): Temp Pulse Resp BP Pulse Ox 97.8 F 68 17 140/84 96 08/08/16 07:10 08/08/16 07:10 08/08/16 07:10 08/08/16 09:59 08/08/16 07:10 Intake and Output: 08/08/16 08/08/16 06:59 18:59 Intake Total 200 Balance 200 - Medications Medications: Current Medications Aspirin (Ecotrin) 81 mg PO DAILY [facility] Last Admin: 08/08/16 09:59 Dose: 81 mg Baclofen (Lioresal) 10 mg PO DAILY [facility] Last Admin: 08/08/16 10:00 Dose: 10 mg Benzonatate (Tessalon Perles) 100 mg PO TID [facility] Last Admin: 08/08/16 10:01 Dose: 100 mg Carvedilol (Coreg) 6.25 mg PO BID [facility] Last Admin: 08/08/16 09:59 Dose: 6.25 mg Enoxaparin Sodium (Lovenox) 40 mg SC DAILY [facility] Last Admin: 08/08/16 10:00 Dose: 40 mg Ergocalciferol (Drisdol 50,000 Intl Units Cap) 1 cap PO QWK [facility] Furosemide (Lasix) 20 mg PO DAILY [facility] Last Admin: 08/08/16 09:59 Dose: 20 mg Gabapentin (Neurontin) 300 mg PO TID [facility] Last Admin: 08/08/16 09:59 Dose: 300 mg Home Med (Cevimeline Hcl [Cevimeline Hcl]) 30 mg PO DAILY [facility] Lactic Acid (Lac-Hydrin 12% Lotion (225 G)) 0 gm TOP DAILY [facility] Last Admin: 08/08/16 10:03 Dose: 1 applic Meclizine HCl (Antivert) 25 mg PO Q6 PRN PRN Reason: Dizziness Mupirocin (Bactroban Ointment) 0 gm TOP BID [facility] Last Admin: 08/08/16 10:01 Dose: 1 applic Nitroglycerin (Nitrostat Sl Tab) 0.4 mg SL Q5MIN PRN PRN Reason: pain Pentoxifylline (Pentoxil) 400 mg PO DAILY [facility] Last Admin: 08/08/16 10:01 Dose: 400 mg Prednisone (Prednisone Tab) 20 mg PO DAILY [facility] Last Admin: 08/08/16 09:59 Dose: 20 mg Rosuvastatin Calcium (Crestor) 5 mg PO HS [facility] Last Admin: 08/07/16 22:21 Dose: 5 mg Tamsulosin HCl (Flomax) 0.4 mg PO DAILY [facility] Last Admin: 08/08/16 09:59 Dose: 0.4 mg Tramadol HCl (Ultram) 50 mg PO TID PRN PRN Reason: Pain, moderate (4-7) Last Admin: 08/08/16 06:12 Dose: 50 mg - Constitutional Appears: Well, No Acute Distress - Respiratory Exam Respiratory Exam: Clear to Ausculation Bilateral, NORMAL BREATHING PATTERN - Cardiovascular Exam Cardiovascular Exam: REGULAR RHYTHM, +S1, +S2 - Neurological Exam Neurological Exam: Alert, Awake, Oriented x3 Assessment and Plan - Assessment and Plan (Free Text) Assessment: A/P 71 yr old male admitted for chest pain/ NSTEMI s/p cardiac cath yesterday( eft circumflex 80% (dominant vessel). RCA 95% (small vessel)LVEF 55%. vss- stable D/W Dr. Pierson , Patient can be discharge home today with brilinta 90 mg bid and pt scheduled electively for intervention of the left circumflex artery at [facility] at 1 pm tomorrow D/W Dr. Muller, anthony for discharge home today and f/u with [facility] [place] tomorrow discharge plan discussed with patient who understands and agrees with plan Pt instructed to returns to ED if symptoms returns RX for brillinda filled and Pt sent home with brilinda
--- NOTE | 2016-08-08 13:37 | CARD ---
APPROVED REPORT EKG Measurement Heart [id number] <Conclusion> Sinus bradycardia Inferior infarct, age undetermined Abnormal ECG
--- NOTE | 2016-08-09 00:06 | CP.PCM.DIS ---
Provider - Provider Date of Admission: 08/07/16 16:51 Attending physician: Sai Muller MD Time Spent in preparation of Discharge (in minutes): 26 Diagnosis - Discharge Diagnosis (1) CAD (coronary artery disease) Status: Acute (2) Chest pain Status: Acute (3) HTN (hypertension) Status: Acute (4) NSTEMI (non-ST elevated myocardial infarction) Status: Acute Hospital Course - Lab Results Lab Results: Most Recent Lab Values WBC 8.3 K/uL (4.8-10.8) 08/07/16 14:58 RBC 5.60 Mil/uL (4.40-5.90) 08/07/16 14:58 Hgb 15.4 g/dL (12.0-18.0) 08/07/16 14:58 Hct 47.6 % (35.0-51.0) 08/07/16 14:58 MCV 85.0 fL (80.0-94.0) 08/07/16 14:58 MCH 27.5 pg (27.0-31.0) 08/07/16 14:58 MCHC 32.3 g/dL (33.0-37.0) L 08/07/16 14:58 RDW 14.2 % (11.5-14.5) 08/07/16 14:58 Plt Count 93 K/uL (130-400) L 08/07/16 14:58 MPV 8.6 fL (7.2-11.7) 08/07/16 14:58 Neut % (Auto) 34.4 % (50.0-75.0) L 08/05/16 14:30 Lymph % (Auto) 58.5 % (20.0-40.0) H 08/05/16 14:30 Coffee % (Auto) 5.3 % (0.0-10.0) 08/05/16 14:30 Eos % (Auto) 1.3 % (0.0-4.0) 08/05/16 14:30 Baso % (Auto) 0.5 % (0.0-2.0) 08/05/16 14:30 Neut # 2.5 K/uL (1.8-7.0) 08/05/16 14:30 Lymph # 4.2 K/uL (1.0-4.3) 08/05/16 14:30 Coffee # 0.4 K/uL (0.0-0.8) 08/05/16 14:30 Eos # 0.1 K/uL (0.0-0.7) 08/05/16 14:30 Baso # 0.0 K/uL (0.0-0.2) 08/05/16 14:30 Neutrophils % (Manual) 37 % (50-75) L 08/05/16 14:30 Lymphocytes % (Manual) 51 % (20-40) H 08/05/16 14:30 Reactive Lymphs % 4 % (0-0) H 08/05/16 14:30 Monocytes % (Manual) 7 % (0-10) 08/05/16 14:30 Eosinophils % (Manual) 1 % (0-4) 08/05/16 14:30 Platelet Estimate Decreased (NORMAL) L 08/05/16 14:30 Anisocytosis (manual) Slight 08/05/16 14:30 Sodium 140 mmol/L (132-148) 08/05/16 14:30 Potassium 4.2 mmol/L (3.6-5.2) 08/05/16 14:30 Chloride 107 mmol/L (98-107) 08/05/16 14:30 Carbon Dioxide 22 mmol/L (22-30) 08/05/16 14:30 Anion Gap 15 (10-20) 08/05/16 14:30 BUN 19 mg/dL (9-20) 08/05/16 14:30 Creatinine 0.8 MG/DL (0.8-1.5) 08/05/16 14:30 Est GFR ( Amer) > 60 08/05/16 14:30 Est GFR (Non-Af Amer) > 60 08/05/16 14:30 Random Glucose 103 mg/dL (75-110) 08/05/16 14:30 Calcium 9.0 mg/dl (8.6-10.4) 08/05/16 14:30 Total Bilirubin 2.0 mg/dL (0.2-1.3) H 08/05/16 14:30 AST 33 U/L (17-59) 08/05/16 14:30 ALT 33 U/L (21-72) 08/05/16 14:30 Alkaline Phosphatase 34 U/L (38-126) L 08/05/16 14:30 Total Creatine Kinase 71 U/L (55-170) 08/06/16 07:14 CK-MB (Mass) 2.56 ng/mL (0.0-3.38) 08/06/16 07:14 Troponin I 0.1160 ng/mL (0.00-0.120) 08/07/16 14:06 Troponin I, Quant 0.2730 ng/mL (0.00-0.120) H* 08/06/16 07:14 Total Protein 6.6 g/dL (6.3-8.3) 08/05/16 14:30 Albumin 3.6 g/dL (3.5-5.0) 08/05/16 14:30 Globulin 3.0 gm/dL (2.2-3.9) 08/05/16 14:30 Albumin/Globulin Ratio 1.2 (1.0-2.1) 08/05/16 14:30 - Hospital Course Hospital Course: 71 yr old male admitted for chest pain/ NSTEMI s/p cardiac cath yesterday( eft circumflex 80% (dominant vessel). RCA 95% (small vessel)LVEF 55%. vss- stable D/W Dr. Pierson , Patient can be discharge home today with brilinta 90 mg bid and pt scheduled electively for intervention of the left circumflex artery at [facility] at 1 pm tomorrow stable for discharge home today and f/u with [facility] [place] tomorrow discharge plan discussed with patient who understands and agrees with plan Pt instructed to returns to ED if symptoms returns RX for brillinda filled and Pt sent home with brilinda Discharge Exam - Head Exam Head Exam: ATRAUMATIC, NORMAL INSPECTION, NORMOCEPHALIC - Eye Exam Eye Exam: EOMI, Normal appearance, PERRL Pupil Exam: NORMAL ACCOMODATION, PERRL - ENT Exam ENT Exam: Mucous Membranes Moist - Respiratory Exam Respiratory Exam: Decreased Breath Sounds, Rales - Cardiovascular Exam Cardiovascular Exam: REGULAR RHYTHM, +S1, +S2 - GI/Abdominal Exam GI & Abdominal Exam: Normal Bowel Sounds - Neurological Exam Neurological exam: Alert, CN II-XII Intact, Normal Gait, Oriented x3, Reflexes Normal - Psychiatric Exam Psychiatric exam: Normal Affect, Normal Mood - Skin Skin Exam: Dry, Intact, Normal Color, Warm Discharge Plan - Discharge Medications Prescriptions: Ticagrelor [Brilinta] 90 mg PO BID #60 tab - Follow Up Plan Condition: GOOD Disposition: HOME/ ROUTINE Instructions: Myocardial Infarction (DC), Chest Pain (DC), Heart Healthy Diet ( DC), Low Sodium Diet (DC) Additional Instructions: Please go to [facility] and arrive 11 am for procedure at 1 pm at [facility] [employer] labou[facility] ( you need to go to pre registration first at out patient registration ) NPO ( nothing to eat) after midnight today Continue medication as per Med. Rec. Referrals: Lalo Raines MD [Medical Doctor] - 1 Week
[2016-08-12] MEDS ORDERED: Ergocalciferol 50,000 Intl Units Cap PO SCH (10:00)
== END 2016-08-08 14:25 | disposition home or self-care (01) | DRG 281 ==
LOC: C.ER 13:46 → C.9E 15:10 → C.6T 17:00 → OBSVTOIN 08-07 16:51
PROVIDERS: ADMIT Internal Medicine; ATTEND Internal Medicine
PROC: 4A023N7 Measurement of Cardiac Sampling and Pressure, Left Heart, Percutaneous Approach (ICD-10-PCS; principal; 2016-08-07)
PROC: B2151ZZ Fluoroscopy of Left Heart using Low Osmolar Contrast (ICD-10-PCS; 2016-08-07)
PROC: B2111ZZ Fluoroscopy of Multiple Coronary Arteries using Low Osmolar Contrast (ICD-10-PCS; 2016-08-07)
DX: I21.4 Non-ST elevation (NSTEMI) myocardial infarction (principal); I47.1 Supraventricular tachycardia; I25.10 Atherosclerotic heart disease of native coronary artery without angina pectoris; I10 Essential (primary) hypertension; J45.909 Unspecified asthma, uncomplicated; K21.9 Gastro-esophageal reflux disease without esophagitis; E78.00 Pure hypercholesterolemia, unspecified; I25.2 Old myocardial infarction; Z87.891 Personal history of nicotine dependence; Z95.5 Presence of coronary angioplasty implant and graft

== ENCOUNTER 2018-06-07 10:40 | Inpatient (IN) | payer MEDICARE, MEDICAID ==
[2018-06-07 10:45] VITALS: BMI 27.9
--- NOTE | 2018-06-07 11:36 | C.PDOC ---
History Of Present Illness 73 y/o M c PMHx CAD, stents, HTN, HLD, told he needs an ablation in the past p/w palpitations this morning. Patient states that for the last month, he has had about 4 similar episodes during which he gets chest pressure and palpitations which resolve with deep breaths or "exercise." He states this morning, same occurred but more severely and he attempted the same maneuvers but without success. Upon arrival to ED, triage found HR to be 160 and after patient coughed a few times, symptoms and HR resolved. Patient denies active chest pain, dyspnea, palpitations. Time Seen by Provider: 06/07/18 10:47 Chief Complaint (Nursing): Chest Pain History Per: Patient History/Exam Limitations: no limitations Onset/Duration Of Symptoms: Other (months. ) Current Symptoms Are (Timing): Still Present Recent travel outside of the [place]: No Past Medical History Vital Signs: Last Vital Signs Temp Pulse 75 06/07/18 10:47 Resp 19 06/07/18 10:47 BP 107/70 06/07/18 10:47 Pulse Ox 97 06/07/18 10:47 - Medical History PMH: Anemia (Iron infusion), Arthritis, Asthma (used to have while smoking 17 years ago), CAD, Cardia Arrhythmia, Fractures (left arm), HTN, Hypercholesterolemia Denies: Chronic Kidney Disease Surgical History: Coronary Stent (x4) - [facility] COLONOSCOPY (04/05/14) CORONAR ARTERIOGR-2 CATH (09/16/14) FLUOROSCOPY OF LEFT HEART USING LOW OSMOLAR CONTRAST (08/07/16) FLUOROSCOPY OF MULT COR ART USING L OSM CONTRAST (08/07/16) LEFT HEART CARDIAC CATH (09/16/14) LT HEART ANGIOCARDIOGRAM (09/16/14) MEASURE OF CARDIAC SAMPL & PRESSURE, L HEART, PERC APPROACH (08/07/16) TETANUS TOXOID ADMINIST (08/17/14) Family History: States: Unknown Family Hx - Social History Hx Tobacco Use: Yes Hx Alcohol Use: No (quit 17 years ago) Hx Substance Use: No - Immunization History Hx Tetanus Toxoid Vaccination: Yes Hx Influenza Vaccination: Yes Hx Pneumococcal Vaccination: Yes Review Of Systems Except As Marked, All Systems Reviewed And Found Negative. Constitutional: Negative for: Fever Respiratory: Negative for: Shortness of Breath Physical Exam - Physical Exam Additional Physical Exam Comments: gen nad head nc/at eyes perrl ent mmm neck supple chest not tender cv reg rate lungs cta b/l abd soft, nt back no cva tenderness skin no rash extre no edema neuro alert ED Course And Treatment - Laboratory Results Result Diagrams: 06/07/18 11:48 06/07/18 11:48 O2 Sat by Pulse Oximetry: 97 (RA) Pulse Ox Interpretation: Normal Medical Decision Making Medical Decision Making: Differential includes but not limited to SVT, afib/aflutter, NV. Initial plan: -EKG -Blood sent. -CXR EKG: NSR 72 bpm, no ST/T wave changes. CXR no acute disease. Will require ACS rule out. Patient's physician on vacation, patient's former PMD Dr. Che who he states he is happy to be seen by again. Dr. Che agrees to admission to her service, recommends Dr. Parker for cardiology. Disposition - Disposition Disposition: HOSPITALIZED Disposition Time: 12:54 Condition: FAIR Forms: [facility] (Botswanan) - Clinical Impression Clinical Impression: SVT (supraventricular tachycardia), Chest pain
[2018-06-07 11:55] LABS: BASO % 0.2 % (0.0-2.0); EOS % 0.1 % (0.0-4.0); HEMOGLOBIN 14.6 g/dL (12.0-18.0); LYMPH # 6.4 K/uL (1.0-4.3); LYMPH % 59.6 % (20.0-40.0); MEAN CELL VOLUME 86.9 fL (80.0-94.0); MEAN CORPUSCULAR HEMOGLOBIN 28.9 pg (27.0-31.0); MEAN CORPUSCULAR HGB CONC 33.3 g/dL (33.0-37.0); MEAN PLATELET VOLUME 8.7 fL (7.2-11.7); MONO # 0.5 K/uL (0.0-0.8); MONO % 4.7 % (0.0-10.0); NEUT # 3.8 K/uL (1.8-7.0); NEUT % 35.4 % (50.0-75.0); NRBC % 0.3 % (0.0-2.0); PLATELET COUNT 101 K/uL (130-400); RBC 5.04 Mil/uL (4.40-5.90); RED CELL DISTRIBUTION WIDTH 14.2 % (11.5-14.5); WHITE BLOOD COUNT 10.8 K/uL (4.8-10.8)
[2018-06-07 12:13] LABS: ALB/GLOB RATIO 2.3 (1.0-2.1); ALBUMIN 4.4 g/dL (3.5-5.0); ALT/SGPT 24 U/L (21-72); AST/SGOT 20 U/L (17-59); BLOOD UREA NITROGEN 20 mg/dL (9-20); CALCIUM 9.4 mg/dl (8.6-10.4); GFR NON-AFRICAN AMERICAN > 60
[2018-06-07 12:24] LABS: CK-MB 2.26 ng/mL (0.0-3.38)
[2018-06-07 12:57] LABS: ANISOCYTOSIS SLIGHT; EOSINOPHIL 1 % (0-4); GIANT PLATELETS PRESENT; LARGE PLATELETS PRESENT; LYMPHOCYTE 45 % (20-40); MONOCYTE 3 % (0-10); NEUTROPHIL 32 % (50-75); PLATELET ESTIMATE SLIGHTLY DECREASED (NORMAL); REACTIVE LYMPHOCYTES 19 % (0-0); TOTAL CELLS COUNTED 100
[2018-06-07 12:58] LABS: SMUDGE CELLS PRESENT
[2018-06-07 12:59] LABS: OVALOCYTES SLIGHT; POIKILOCYTOSIS SLIGHT
--- NOTE | 2018-06-07 16:27 | RAD ---
Date of service: 06/07/2018 HISTORY: chest pain COMPARISON: 08/05/2016 TECHNIQUE: 1 view obtained. FINDINGS: LUNGS: No active pulmonary disease. PLEURA: No significant pleural effusion identified, no pneumothorax apparent. CARDIOVASCULAR: No aortic atherosclerotic calcification present. Normal cardiac size. No pulmonary vascular congestion. OSSEOUS STRUCTURES: No significant abnormalities. VISUALIZED UPPER ABDOMEN: Normal. OTHER FINDINGS: None. IMPRESSION: No active disease.
[2018-06-08 01:04] LABS: CK-MB 1.94 ng/mL (0.0-3.38); TROPONIN I 0.094 ng/mL (0.00-0.120)
[2018-06-08] MEDS: Levothyroxine 50 MCG TAB PO SCH (05:50)
--- NOTE | 2018-06-08 08:25 | PCM.RRT ---
<Racheal Voss - Last Filed: 06/08/18 09:03> FIELD MECHANIC Nurses Assessment - Situation Date: 06/08/18 Time FIELD MECHANIC was called: 08:15 FIELD MECHANIC Responder Arrival Time:: 08:16 FIELD MECHANIC Location:: Med/Surg Room Number: 562B FIELD MECHANIC Reason for Call: Chest Pain, Tachycardia FIELD MECHANIC Called By: RN - IV IV Inserted during FIELD MECHANIC?: No - Respiratory FIELD MECHANIC Delivery Method: Nasal Cannula @L/min (2) Oxygen Flow Rate: 2 Received Nebulizer Treatments: No Was the Patient Ventilated with Bag/Mask 100% O2?: No Secretions Suctioned?: No Was the Patient Intubated?: No Was the Patient Placed on a Ventilator?: No - Medication Medications Administered During FIELD MECHANIC: Nitroglycerin SL, ASA 324 mg - Diagnostic Test Ordered EKG: Yes Chest X-Ray: Yes - Stat Labs Ordered FIELD MECHANIC Stat Labs Ordered: CBC, BMP, PT/PTT, TROPONIN FIELD MECHANIC Other Labs Ordered: D-dimer CPR started during FIELD MECHANIC?: No - Vital Signs Vital Signs: HR 160 BP 126/86 95% on 2L O2 RR 20 - Helene Coma Scale Coma Scale Eye Opening: Spontaneous Coma Scale Motor: Obeys Commands Movement Coma Scale Verbal: Oriented Coma Scale Total: 15 - Time FIELD MECHANIC Ended Time FIELD MECHANIC Ended: 09:00 - Vital Signs at end of FIELD MECHANIC Vital Signs at end of FIELD MECHANIC: HR 65 BP 111/70 93% on 2L O2 RR 18 - Recommendations 5) FIELD MECHANIC Level of Care Recommendations: Transfer to ICU Notifications: Attending Physician, Consultations (Stacy Nguyen) I.Reason for FIELD MECHANIC - A) Acute Change in Patient: (Select all that apply): Acute change in heart rate less than 50 or greater than 120 Subjective: FIELD MECHANIC called for chest pain and tachycardia in the 140s-160s. Patient has a his tory of CAD and is admitted for chest pain and palpitations. Patient is alert and oriented. Patient given SL nitroglycerin and full dose ASA. EKG, CXR, and labs ordered. Patient did not have any pain relief after first nitroglycerin. He says the pain is persisting and radiating to his jaw. Patient is also complaining of leg cramps, which he says he had prior. Patient says that he had heart attacks in the past but this feels different. EKG shows acute changes from EKG yesterday, specifically SVT. Patient says that Dr. Nguyen recommended ablation in the past for SVT, but patient did not have it done because he states his outpatient housekeeping room attendant, Dr. Raines, advised him not to. Patient given a second dose of nitroglycerin without any symptom relief. Patient's heart rate still elevated. IV Lopressor given without change in HR. Started therapeutic Lovenox. Transfer patient to ICU for nitro drip. Patient given carotid massage and IV verapamil, and HR decreased to the 60s-70s. Patient felt mild symptoms relief. - Neurological Status (Select all that apply): Alert, Responsive, Oriented, Verbal, Follows Commands - Respiratory Oxygen Delivery Method: Nasal Cannula @L/min (2) Oxygen Flow Rate: 2 - Constitutional Appears: In Acute Distress - Head Head Exam: ATRAUMATIC, NORMAL INSPECTION - Eyes Eye Exam: EOMI, Normal appearance - Respiratory Exam Respiratory Exam: Clear to Ausculation Bilateral, NORMAL BREATHING PATTERN. absent: Respiratory Distress Additional comments: barrel chest - Cardiovascular Exam Cardiovascular Exam: Tachycardia - GI/Abdominal Exam GI & Abdominal Exam: Soft. absent: Tenderness - Neurological Exam Neurological Exam: Alert, Awake, CN II-XII Intact, Oriented x3 - Extremities Exam Extremities Exam: Normal Inspection. absent: Pedal Edema Plan - Assessment of Findings&Treatment Plan Patient is a 73 yo male with history of SVT, CADS with stents, HTN, and HLD who is admitted for chest pain and palpitations. FIELD MECHANIC called for acute chest pain and tachycardia. Patient found to have SVT. Plan: - Stat EKG - Stat CXR - Stat CBC, CMP, BART, BNP, D-dimer, coags - ASA 324 mg PO - Nitroglycerin 0.4 mg SL x2- BP remained stable throughout - Lopressor 2.5 mg IVP - Verapamil 5 mg IVP - Lovenox 80 mg SC Q12H - Give scheduled dose of Coreg 25 mg - ICU consult- transfer - Contacted attending, Dr. Reyes - Contacted cardiology, Dr. Nguyen <Kaylyn Ingram V - Last Filed: 06/08/18 09:29> Attending/Attestation - Attestation I have personally seen and examined this patient.: Yes I have fully participated in the care of the patient.: Yes I have reviewed all pertinent clinical information, including history, physical exam and plan: Yes Notes (Text): This is 73 year old patient with known history of CAD w 6 stents, BPH, HTN. Patient's initial IA in 1996 evaluated in [facility] in [place]; patient's cardiology is Dr. Raines in [place] but does not come to the hospital and ambulance on admission would not bring to the hospital specified by the patient because it was too far for them. FIELD MECHANIC called for chest pain. Patient reports he is compliant on his medications including baby aspirin, plavix, lasix, coreg 25mg PO BID, lasix, ranexa and medication for the prostate. Patient reports chest pain is 6/10 and then radiating to the neck. telemetry noted for tachycardia (140-160s) with preserved blood pressure. Overnight patient was bradycardic; did not receive any sleep meds. Patient given 4 baby aspirin at the FIELD MECHANIC. Patient had chest pain refractory to 3 nitrosublingual. Vitals checked after each administration. Patient is known to Dr. Nguyen per discussion; reports he had placed one of his stents in the past. Patient also reported he was recommended for ablation by Dr Sanchez in the past but was told by his doctor that he does not need it. My colleague spoke with Dr. Dr Reyes (PMD) to add Dr. Nguyen as consult for the patient. Dr. Nguyen contacted by Resident Karim; recommended for therapuetic lovenox, nitro and icu evaluation. Cardiology had recommended for beta miguel. We gave Lopressor 2.5mg IV X1 however, blood pressure remained borderline low blood pressure with tachyardia (140-160s) and patient noted chest pain was 10/10. My colleague spoke with ICU, Dr Everette Baptiste, patient transferred to the unit. In the unit, patient had vagal manuever, and given Verapmil 5mg IV X1 which improved the SVT to RRR. Blood work drawn at the FIELD MECHANIC. Patient AAOX3, speaks in luxembourgish, tachycardic, appears flush and warm, belly soft nt/nd, pulse regular and fast. Patient is a full code; discussed briefly at bedside.
[2018-06-08 08:33] LABS: CK-MB 1.85 ng/mL (0.0-3.38); TROPONIN I 0.094 ng/mL (0.00-0.120)
[2018-06-08 08:33] LABS: BASO # 0.1 K/uL (0.0-0.2); BASO % 0.5 % (0.0-2.0); EOS # 0.1 K/uL (0.0-0.7); EOS % 0.6 % (0.0-4.0); HEMOGLOBIN 15.6 g/dL (12.0-18.0); LYMPH # 7.5 K/uL (1.0-4.3); LYMPH % 59.5 % (20.0-40.0); MEAN CELL VOLUME 87.2 fL (80.0-94.0); MEAN CORPUSCULAR HEMOGLOBIN 28.9 pg (27.0-31.0); MEAN CORPUSCULAR HGB CONC 33.2 g/dL (33.0-37.0); MEAN PLATELET VOLUME 8.6 fL (7.2-11.7); MONO # 0.6 K/uL (0.0-0.8); MONO % 4.6 % (0.0-10.0); NEUT # 4.4 K/uL (1.8-7.0); NEUT % 34.8 % (50.0-75.0); NRBC % 0.3 % (0.0-2.0); PLATELET COUNT 108 K/uL (130-400); RBC 5.38 Mil/uL (4.40-5.90); RED CELL DISTRIBUTION WIDTH 14.2 % (11.5-14.5); WHITE BLOOD COUNT 12.5 K/uL (4.8-10.8)
[2018-06-08] MEDS ORDERED: Metoprolol 1 mg/ml Inj IVP ONE (08:37)
[2018-06-08] MEDS ORDERED: Nitroglycerin 50mg in D5W 50 MG/250 ML BOTTLE IV SCH (08:45)
[2018-06-08 08:53] LABS: ALB/GLOB RATIO 1.8 (1.0-2.1); ALBUMIN 4.2 g/dL (3.5-5.0); ALT/SGPT 18 U/L (21-72); AST/SGOT 21 U/L (17-59); BLOOD UREA NITROGEN 22 mg/dL (9-20); CALCIUM 9.4 mg/dl (8.6-10.4); GFR NON-AFRICAN AMERICAN > 60
[2018-06-08] MEDS ORDERED: Verapamil 2 ML ONE ×2 (08:53→08:57)
[2018-06-08 08:57] LABS: B-TYPE NATRIURETIC PEPTIDE 945 pg/mL (0-900); CK-MB 2.05 ng/mL (0.0-3.38)
--- NOTE | 2018-06-08 09:43 | CP.PCM.CON ---
History of Present Illness - History of Present Illness History of Present Illness: 73 y/o M with PMHx CAD,s/p PCI, HTN, HLD admitted to [facility] for chest pain and palpitation. Increasing dyspnea and SOB. PAtient has long history of smoking and has stopped, but still manifests barrel chest. PAtietn had SIZE MAKER and was brought to ICU. In ICU patient was asymptomatic with HR near 150s. 5 mg of verapamil pushed and patient's HR improved. PAtient remains asymptomatic. PAtient states he takes 25 mg of coreg and is prescribed 6.25 mg of coreg. Pmx: CAD/COPD/SVT Psh sx: s/p PCI allergies: NKDA SH: stopped smoking recently Review of Systems - Review of Systems All systems: reviewed and no additional remarkable complaints except (dyspena) Past Patient History - Infectious Disease Hx of Infectious Diseases: None - Past Medical History & Family History Past Medical History?: Yes - Past Social History Smoking Status: Former Smoker - CARDIAC Hx Cardia Arrhythmia: Yes Hx Hypercholesterolemia: Yes Hx Hypertension: Yes - PULMONARY Hx Asthma: Yes (used to have while smoking 17 years ago) - NEUROLOGICAL Hx Neurological Disorder: Yes Hx Dizziness: Yes Hx Vertigo: Yes Other/Comment: Near syncope - HEENT Hx HEENT Problems: Yes Other/Comment: Left ear constantly ringing - RENAL Hx Chronic Kidney Disease: No - ENDOCRINE/METABOLIC Hx Endocrine Disorders: No - HEMATOLOGICAL/ONCOLOGICAL Hx Anemia: Yes (Iron infusion) - INTEGUMENTARY Hx Dermatological Problems: No - MUSCULOSKELETAL/RHEUMATOLOGICAL Hx Arthritis: Yes Hx Fractures: Yes (left arm) - GASTROINTESTINAL Hx Gastrointestinal Disorders: No Hx Gastroesophageal Reflux: Yes Hx Hemorrhoids: Yes - GENITOURINARY/GYNECOLOGICAL Hx Genitourinary Disorders: Yes Hx Prostate Problems: Yes (pt denies) - PSYCHIATRIC Hx Substance Use: No - SURGICAL HISTORY Hx Coronary Stent: Yes (x4) - ANESTHESIA Hx Anesthesia: Yes Hx Anesthesia Reactions: No Hx Malignant Hyperthermia: No Meds Allergies/Adverse Reactions: Allergies Allergy/AdvReac Type Severity Reaction Status Date / Time No Known Allergies Allergy Verified 06/07/18 10:51 - Medications Medications: Current Medications Carvedilol (Coreg) 25 mg PO BID [facility] Clopidogrel Bisulfate (Plavix) 75 mg PO DAILY [facility] Enoxaparin Sodium (Lovenox) 80 mg SC Q12 KARLOS Nitroglycerin/Dextrose (Nitroglycerin 50 Mg/250 Ml D5w) 50 mg in 250 mls @ 1.5 mls/hr IV .Q24H [facility]; Protocol Levothyroxine Sodium (Synthroid) 50 mcg PO DAILY@0630 [facility] Last Admin: 06/08/18 05:50 Dose: 50 mcg Losartan Potassium (Cozaar) 50 mg PO DAILY [facility] Nitroglycerin (Nitrostat Sl Tab) 0.4 mg SL Q5M PRN PRN Reason: Other Ranolazine (Ranexa) 500 mg PO BID [facility] Rosuvastatin Calcium (Crestor) 5 mg PO HS [facility] Last Admin: 06/08/18 01:15 Dose: 5 mg Tamsulosin HCl (Flomax) 0.4 mg PO DAILY [facility] Physical Exam - Head Exam Head Exam: ATRAUMATIC, NORMAL INSPECTION, NORMOCEPHALIC - Eye Exam Eye Exam: EOMI, Normal appearance - ENT Exam ENT Exam: Mucous Membranes Moist - Respiratory Exam Respiratory Exam: Clear to Auscultation Bilateral, NORMAL BREATHING PATTERN. absent: Rales, Wheezes, Stridor - Cardiovascular Exam Cardiovascular Exam: Tachycardia, Irregular Rhythm, +S1, +S2. absent: Rubs - GI/Abdominal Exam GI & Abdominal Exam: Normal Bowel Sounds, Soft - Rectal Exam Rectal Exam: NORMAL INSPECTION - Extremities Exam Extremities exam: Positive for: normal inspection - Neurological Exam Neurological exam: Alert, CN II-XII Intact, Oriented x3 - Skin Skin Exam: Normal Color, Warm Results - Vital Signs Recent Vital Signs: Last Vital Signs Temp 98.0 F 06/07/18 23:00 Pulse 52 L 06/08/18 04:40 Resp 20 06/07/18 23:00 BP 121/66 06/07/18 23:00 Pulse Ox 95 06/07/18 23:00 - Labs Result Diagrams: 06/08/18 08:29 06/08/18 08:29 Labs: Laboratory Results - last 24 hr 06/07/18 06/07/18 06/08/18 11:48 11:48 00:31 WBC 10.8 RBC 5.04 Hgb 14.6 Hct 43.8 MCV 86.9 MCH 28.9 MCHC 33.3 RDW 14.2 Plt Count 101 L MPV 8.7 Neut % (Auto) 35.4 L Lymph % (Auto) 59.6 H Towner % (Auto) 4.7 Eos % (Auto) 0.1 Baso % (Auto) 0.2 Neut # (Auto) 3.8 Lymph # (Auto) 6.4 H Towner # (Auto) 0.5 Eos # (Auto) 0.0 Baso # (Auto) 0.0 Neutrophils % (Manual) 32 L Lymphocytes % (Manual) 45 H Reactive Lymphs % 19 H Monocytes % (Manual) 3 Eosinophils % (Manual) 1 Smudge Cells Present Platelet Estimate Slightly decreased L Large Platelets Present Giant Platelets Present Poikilocytosis (manual Slight Anisocytosis (manual) Slight Ovalocytes Slight Sodium 135 Potassium 4.0 Chloride 107 Carbon Dioxide 24 Anion Gap 9 L BUN 20 Creatinine 0.7 L Est GFR ( Amer) > 60 Est GFR (Non-Af Amer) > 60 Random Glucose 107 Calcium 9.4 Phosphorus Magnesium Total Bilirubin 1.4 H AST 20 ALT 24 Alkaline Phosphatase 35 L Total Creatine Kinase 120 72 CK-MB (Mass) 2.26 1.94 Troponin I 0.0300 0.0940 NT-Pro-B Natriuret Pep Total Protein 6.3 Albumin 4.4 Globulin 1.9 L Albumin/Globulin Ratio 2.3 H 06/08/18 06/08/18 06/08/18 07:00 08:29 08:29 WBC 12.5 H RBC 5.38 Hgb 15.6 Hct 46.9 MCV 87.2 MCH 28.9 MCHC 33.2 RDW 14.2 Plt Count 108 L MPV 8.6 Neut % (Auto) 34.8 L Lymph % (Auto) 59.5 H Towner % (Auto) 4.6 Eos % (Auto) 0.6 Baso % (Auto) 0.5 Neut # (Auto) 4.4 Lymph # (Auto) 7.5 H Towner # (Auto) 0.6 Eos # (Auto) 0.1 Baso # (Auto) 0.1 Neutrophils % (Manual) Lymphocytes % (Manual) Reactive Lymphs % Monocytes % (Manual) Eosinophils % (Manual) Smudge Cells Platelet Estimate Large Platelets Giant Platelets Poikilocytosis (manual Anisocytosis (manual) Ovalocytes Sodium 137 Potassium 4.1 Chloride 104 Carbon Dioxide 23 Anion Gap 15 BUN 22 H Creatinine 0.8 Est GFR ( Amer) > 60 Est GFR (Non-Af Amer) > 60 Random Glucose 112 H Calcium 9.4 Phosphorus 3.4 Magnesium 1.8 Total Bilirubin 1.6 H AST 21 ALT 18 L D Alkaline Phosphatase 38 Total Creatine Kinase 60 57 CK-MB (Mass) 1.85 2.05 Troponin I 0.0940 0.1160 NT-Pro-B Natriuret Pep 945 H Total Protein 6.5 Albumin 4.2 Globulin 2.3 Albumin/Globulin Ratio 1.8 Assessment & Plan - Assessment and Plan (Free Text) Assessment: SVT: continue coreg at 25 mg (home doasge) -rate controlled -continue all other medications as per cardiology including asa, coreg, palvix, synthroid and lovenox -consider switching to oral AC -PAtient remains hemodynamically stable -SVT broke with verapamil 5 mg push once. - Date & Time Date: 06/08/18 Time: 13:05
[2018-06-08 10:43] LABS: INR 1.3; PROTHROMBIN TIME 14.2 SECONDS (9.7-12.2)
[2018-06-08 10:46] LABS: D DIMER < 200 ng/mlDDU (0-243)
[2018-06-08] MEDS: Ranolazine 500 mg Extended Release Tablets PO SCH ×2 (10:53→18:25)
[2018-06-08] MEDS: Enoxaparin 80 mg Syringe SC SCH ×2 (10:58→21:53)
--- NOTE | 2018-06-08 11:08 | CP.PCM.CON ---
History of Present Illness - History of Present Illness History of Present Illness: I was asked to see patient by Dr Che. Madhu is a 73 year old male with HTN, hypercholesterolemia, CAD s/p stent LCx, SVT ( ablation recommended but patient has refused) who presents with palpitiations. Patient has a known history of SVT and has been seen by EP (Dr Sanchez) and ablation was recommended. Patient follows with an outside hand bender (Dr Raines), and according to him he does not need an ablation. Patient states his last appointment was in March. He presents with intermittent palpitations. He was found to be in SVT. He is currently in ICU, denies chest pain or dyspnea. Review of Systems - Constitutional Constitutional: absent: As Per HPI, Anorexia, Chills, Daytime Sleepiness, Excessive Sweating, Fatigue, Fever, Frequent Falls, Headache, Increased Appetite, Lethargy, Malaise, Night Sweats, Snoring, Sleep Apnea, Weight Gain, Weight Loss, Weakness, Other - EENT Eyes: absent: As Per HPI, Blind Spots, Blurred Vision, Change in Vision, Decreased Night Vision, Diplopia, Discharge, Dry Eye, Exophthalmos, Floaters, Irritation, Itchy Eyes, Loss of Peripheral Vision, Pain, Photophobia, Requires Corrective Lenses, Sees Flashes, Spots in Vision, Tunnel Vision, Other Visual Disturbances, Loss of Vision, Other Ears: absent: As Per HPI, Decreased Hearing, Ear Discharge, Ear Pain, Tinnitus, Abnormal Hearing, Disequilibrium, Dizziness, Other Nose/Mouth/Throat: absent: As Per HPI, Epistaxis, Nasal Congestion, Nasal Discharge, Nasal Obstruction, Nasal Trauma, Nose Pain, Post Nasal Drip, Sinus Pain, Sinus Pressure, Bleeding Gums, Change in Voice, Dental Pain, Dry Mouth, Dysphagia, Halitosis, Hoarsness, Lip Swelling, Mouth Lesions, Mouth Pain, Elaine nophagia, Sore Throat, Throat Swelling, Tongue Swelling, Facial Pain, Neck Pain, Neck Mass, Other - Cardiovascular Cardiovascular: Dyspnea, Palpitations, Rapid Heart Rate - Respiratory Respiratory: absent: As Per HPI, Cough, Dyspnea, Hemoptysis, Dyspnea on Exertion, Wheezing, Snoring, Stridor, Pain on Inspiration, Chest Congestion, Excessive Mucous Production, Change in Mucous Color, Pain with Coughing, Other - Gastrointestinal Gastrointestinal: absent: As Per HPI, Abdominal Pain, Belching, Bloating, Change in Bowel Habits, Change in Stool Character, Coffee Ground Emesis, Constipation, Cramping, Diarrhea, Dyspepsia, Dysphagia, Early Satiety, Excessive Flatus, Fecal Incontinence, Heartburn, Hematemesis, Hematochezia, Loose Stools, Melena, Nausea, Odynophagia, Temesmus, Vomiting, Other - Genitourinary Genitourinary: absent: As Per HPI, Change in Urinary Stream, Difficulty Urinating, Dysuria, Flank Pain, Hematuria, Pyuria, Nocturia, Urinary Incontinence, Urinary Frequency, Urinary Hesitance, Urinary Urgency, Voiding Freq/Small Amts, Freq UTI, Hx Renal/Bladder Calculi, Hx /Renal Surgery, Bladder Distension, Other - Musculoskeletal Musculoskeletal: absent: As Per HPI, Abnormal Gait, Arthralgias, Atrophy, Back Pain, Deformity, Joint Swelling, Limited Range of Motion, Loss of Height, Muscle Cramps, Muscle Weakness, Myalgias, Neck Pain, Numbness, Radiating Pain into Limb, Stiffness, Tingling, Other - Integumentary Integumentary: absent: As Per HPI, Acne, Alopecia, Bleeding Lesions, Change in Hair, Change in Nails, Change in Pigmentation, Changing Lesions, Dry Skin, Erythema, Furuncle, Hirsutism, Lesions, New Lesions, Non-Healing Lesions, Photos ensitivity, Pruritus, Rash, Skin Pain, Skin Ulcer, Sores, Striae, Swelling, Unusual Bruising, Wounds, Jaundice, Other - Neurological Neurological: absent: As Per HPI, Abnormal Gait, Abnormal Hearing, Abnormal Movements, Abnormal Speech, Behavioral Changes, Burning Sensations, Confusion, Convulsions, Disequilibrium, Dizziness, Numbness, Focal Weakness, Frequent Falls, Headaches, Lack of Coordination, Loss of Vision, Memory Loss, Paresthesias, Radicular Pain, Restless Legs, Sensory Deficit, Syncope, Tingling, Tremor, Vertigo, Weakness, Other Visual Disturbances, Other - Psychiatric Psychiatric: absent: As Per HPI, Abnormal Sleep Pattern, Anhedonia, Anxiety, Auditory Hallucinations, Behavioral Changes, Change in Appetite, Change in Libido, Confusion, Depression, Difficulty Concentrating, Hallucinations, Homicidal Ideation, Hopelessness, Irritability, Memory Loss, Mood Swings, Panic Attacks, Paranoia, Suicidal Ideation, Visual Hallucinations, Tactile Hallucinations, Other - Endocrine Endocrine: absent: As Per HPI, Change in Body Appearance, Change in Libido, Cold Intolorance, Deepening of Voice, Excessive Sweating, Fatigue, Flushing, Heat Intolorance, Increase in Ring/Shoe/Hat Size, Palpitations, Polydipsia, Polyphagia, Polyuria, Other - Hematologic/Lymphatic Hematologic: absent: As Per HPI, Easy Bleeding, Easy Bruising, Lymphadenopathy, Other Past Patient History - Infectious Disease Hx of Infectious Diseases: None - Past Medical History & Family History Past Medical History?: Yes - Past Social History Smoking Status: Former Smoker - CARDIAC Hx Cardia Arrhythmia: Yes Hx Hypercholesterolemia: Yes Hx Hypertension: Yes - PULMONARY Hx Asthma: Yes (used to have while smoking 17 years ago) - NEUROLOGICAL Hx Neurological Disorder: Yes Hx Dizziness: Yes Hx Vertigo: Yes Other/Comment: Near syncope - HEENT Hx HEENT Problems: Yes Other/Comment: Left ear constantly ringing - RENAL Hx Chronic Kidney Disease: No - ENDOCRINE/METABOLIC Hx Endocrine Disorders: No - HEMATOLOGICAL/ONCOLOGICAL Hx Anemia: Yes (Iron infusion) - INTEGUMENTARY Hx Dermatological Problems: No - MUSCULOSKELETAL/RHEUMATOLOGICAL Hx Arthritis: Yes Hx Fractures: Yes (left arm) - GASTROINTESTINAL Hx Gastrointestinal Disorders: No Hx Gastroesophageal Reflux: Yes Hx Hemorrhoids: Yes - GENITOURINARY/GYNECOLOGICAL Hx Genitourinary Disorders: Yes Hx Prostate Problems: Yes (pt denies) - PSYCHIATRIC Hx Substance Use: No - SURGICAL HISTORY Hx Coronary Stent: Yes (x4) - ANESTHESIA Hx Anesthesia: Yes Hx Anesthesia Reactions: No Hx Malignant Hyperthermia: No Meds Allergies/Adverse Reactions: Allergies Allergy/AdvReac Type Severity Reaction Status Date / Time No Known Allergies Allergy Verified 06/07/18 10:51 - Medications Medications: Current Medications Carvedilol (Coreg) 25 mg PO BID [facility] Last Admin: 06/08/18 10:16 Dose: 25 mg Clopidogrel Bisulfate (Plavix) 75 mg PO DAILY [facility] Last Admin: 06/08/18 09:44 Dose: 75 mg Enoxaparin Sodium (Lovenox) 80 mg SC Q12 [facility] Last Admin: 06/08/18 10:58 Dose: 80 mg Levothyroxine Sodium (Synthroid) 50 mcg PO DAILY@0630 [facility] Last Admin: 06/08/18 05:50 Dose: 50 mcg Losartan Potassium (Cozaar) 50 mg PO DAILY [facility] Last Admin: 06/08/18 09:44 Dose: 50 mg Nitroglycerin (Nitrostat Sl Tab) 0.4 mg SL Q5M PRN PRN Reason: Other Ranolazine (Ranexa) 500 mg PO BID [facility] Last Admin: 06/08/18 10:53 Dose: 500 mg Rosuvastatin Calcium (Crestor) 5 mg PO HS [facility] Last Admin: 06/08/18 01:15 Dose: 5 mg Tamsulosin HCl (Flomax) 0.4 mg PO DAILY [facility] Last Admin: 06/08/18 09:44 Dose: 0.4 mg Physical Exam - Constitutional Appears: Non-toxic - Head Exam Head Exam: NORMAL INSPECTION - Eye Exam Eye Exam: Normal appearance - ENT Exam ENT Exam: Mucous Membranes Moist - Neck Exam Neck exam: Positive for: Full Rom - Respiratory Exam Respiratory Exam: NORMAL BREATHING PATTERN - Cardiovascular Exam Cardiovascular Exam: REGULAR RHYTHM - GI/Abdominal Exam GI & Abdominal Exam: Normal Bowel Sounds - Rectal Exam Rectal Exam: Deferred - Extremities Exam Extremities exam: Positive for: normal inspection, pedal edema - Back Exam Back exam: NORMAL INSPECTION - Neurological Exam Neurological exam: Alert, Oriented x3 - Psychiatric Exam Psychiatric exam: Normal Affect - Skin Skin Exam: Normal Color Results - Vital Signs Recent Vital Signs: Last Vital Signs Temp 98.0 F 06/07/18 23:00 Pulse 47 L 06/08/18 10:00 Resp 20 06/07/18 23:00 BP 101/68 06/08/18 10:16 Pulse Ox 95 06/07/18 23:00 - Labs Result Diagrams: 06/08/18 08:29 06/08/18 08:29 Labs: Laboratory Results - last 24 hr 06/07/18 06/07/18 06/08/18 11:48 11:48 00:31 WBC 10.8 RBC 5.04 Hgb 14.6 Hct 43.8 MCV 86.9 MCH 28.9 MCHC 33.3 RDW 14.2 Plt Count 101 L MPV 8.7 Neut % (Auto) 35.4 L Lymph % (Auto) 59.6 H [place] % (Auto) 4.7 Eos % (Auto) 0.1 Baso % (Auto) 0.2 Neut # (Auto) 3.8 Lymph # (Auto) 6.4 H [place] # (Auto) 0.5 Eos # (Auto) 0.0 Baso # (Auto) 0.0 Neutrophils % (Manual) 32 L Lymphocytes % (Manual) 45 H Reactive Lymphs % 19 H Monocytes % (Manual) 3 Eosinophils % (Manual) 1 Smudge Cells Present Platelet Estimate Slightly decreased L Large Platelets Present Giant Platelets Present Poikilocytosis (manual Slight Anisocytosis (manual) Slight Ovalocytes Slight PT INR APTT D-Dimer, Quantitative Sodium 135 Potassium 4.0 Chloride 107 Carbon Dioxide 24 Anion Gap 9 L BUN 20 Creatinine 0.7 L Est GFR ( Amer) > 60 Est GFR (Non-Af Amer) > 60 Random Glucose 107 Calcium 9.4 Phosphorus Magnesium Total Bilirubin 1.4 H AST 20 ALT 24 Alkaline Phosphatase 35 L Total Creatine Kinase 120 72 CK-MB (Mass) 2.26 1.94 Troponin I 0.0300 0.0940 NT-Pro-B Natriuret Pep Total Protein 6.3 Albumin 4.4 Globulin 1.9 L Albumin/Globulin Ratio 2.3 H 06/08/18 06/08/18 06/08/18 07:00 08:29 08:29 WBC 12.5 H RBC 5.38 Hgb 15.6 Hct 46.9 MCV 87.2 MCH 28.9 MCHC 33.2 RDW 14.2 Plt Count 108 L MPV 8.6 Neut % (Auto) 34.8 L Lymph % (Auto) 59.5 H [place] % (Auto) 4.6 Eos % (Auto) 0.6 Baso % (Auto) 0.5 Neut # (Auto) 4.4 Lymph # (Auto) 7.5 H [place] # (Auto) 0.6 Eos # (Auto) 0.1 Baso # (Auto) 0.1 Neutrophils % (Manual) Lymphocytes % (Manual) Reactive Lymphs % Monocytes % (Manual) Eosinophils % (Manual) Smudge Cells Platelet Estimate Large Platelets Giant Platelets Poikilocytosis (manual Anisocytosis (manual) Ovalocytes PT INR APTT D-Dimer, Quantitative Sodium 137 Potassium 4.1 Chloride 104 Carbon Dioxide 23 Anion Gap 15 BUN 22 H Creatinine 0.8 Est GFR ( Amer) > 60 Est GFR (Non-Af Amer) > 60 Random Glucose 112 H Calcium 9.4 Phosphorus 3.4 Magnesium 1.8 Total Bilirubin 1.6 H AST 21 ALT 18 L D Alkaline Phosphatase 38 Total Creatine Kinase 60 57 CK-MB (Mass) 1.85 2.05 Troponin I 0.0940 0.1160 NT-Pro-B Natriuret Pep 945 H Total Protein 6.5 Albumin 4.2 Globulin 2.3 Albumin/Globulin Ratio 1.8 06/08/18 08:29 WBC RBC Hgb Hct MCV MCH MCHC RDW Plt Count MPV Neut % (Auto) Lymph % (Auto) [place] % (Auto) Eos % (Auto) Baso % (Auto) Neut # (Auto) Lymph # (Auto) [place] # (Auto) Eos # (Auto) Baso # (Auto) Neutrophils % (Manual) Lymphocytes % (Manual) Reactive Lymphs % Monocytes % (Manual) Eosinophils % (Manual) Smudge Cells Platelet Estimate Large Platelets Giant Platelets Poikilocytosis (manual Anisocytosis (manual) Ovalocytes PT 14.2 H INR 1.3 APTT 33.0 D-Dimer, Quantitative < 200 Sodium Potassium Chloride Carbon Dioxide Anion Gap BUN Creatinine Est GFR ( Amer) Est GFR (Non-Af Amer) Random Glucose Calcium Phosphorus Magnesium Total Bilirubin AST ALT Alkaline Phosphatase Total Creatine Kinase CK-MB (Mass) Troponin I NT-Pro-B Natriuret Pep Total Protein Albumin Globulin Albumin/Globulin Ratio - EKG Data EKG Interpreted by: Myself EKG shows normal: Sinus rhythm Assessment & Plan (1) SVT (supraventricular tachycardia) Assessment and Plan: patient has had multiple previous visits to the hospitl for SVT. he initally agrees, but then refuses. Recommend continued medical therapy. If no further SVT, patient can be discharged to follow up. Patient is still undecided ( even after mutliple discussions over the last few years) about the need for ablation. The risks and benefits have been explained in full detail. Status: Acute (2) HTN (hypertension) Assessment and Plan: can use betablocker for blood pressure control Status: Acute (3) CAD (coronary artery disease) Assessment and Plan: maintian antiplatelet therapy with ASA 81 mg daily, Plavix 75 mg daily. Status: Acute
[2018-06-08 11:19] LABS: BANDS 1 % (0-2); EOSINOPHIL 1 % (0-4); LYMPHOCYTE 49 % (20-40); MONOCYTE 5 % (0-10); NEUTROPHIL 29 % (50-75); REACTIVE LYMPHOCYTES 15 % (0-0); TOTAL CELLS COUNTED 100
[2018-06-08 11:20] LABS: ANISOCYTOSIS SLIGHT; OVALOCYTES SLIGHT; PLATELET ESTIMATE SLIGHTLY DECREASED (NORMAL)
--- NOTE | 2018-06-09 01:46 | PN ---
DATE: 06/08/2018 SUBJECTIVE: The patient is a 73-year-old male. The patient is seen and examined by me on 06/08/2018. The patient looks comfortable. No fever. No chills. No hematuria or hematochezia. No headache or dizziness. At that moment, no chest pain, no palpitation. Discussion done with hospitalist today in the morning. There was rapid response of the patient due to chest pain with tachycardia but when I saw, the pain was better, no fever and no chills. PHYSICAL EXAMINATION: VITAL SIGNS: Pulse of 60, blood pressure 103/54, respiratory rate 18. The patient is afebrile. HEENT: Head: Normocephalic and atraumatic. Eyes: PERRLA. Extraocular muscles intact. Conjunctivae clear. Nose patent. NECK: Supple. No carotid bruit. No JVD or thyromegaly. CHEST: Bilaterally symmetrical. HEART: S1 and S2 positive. LUNGS: Clear to auscultation. ABDOMEN: Soft. Bowel sounds present. No organomegaly. EXTREMITIES: No edema. No cyanosis. NEUROLOGICAL: The patient is awake and alert. Moving all four extremities. No focal deficit. MEDICATIONS: Coreg, Cozaar, Crestor, Flomax, Lovenox, nitroglycerin, Plavix, Ranexa, Synthroid. LABORATORY DATA: White blood cells 12.5, hemoglobin 15.6, hematocrit 46.9, platelets 108. Sodium 137, potassium 4.1, BUN 22, creatinine 0.8, glucose 112. ASSESSMENT AND PLAN: Mr. Hedy Knott is a 73-year-old male with leukocytosis, hyperglycemia, abnormal liver function tests. Came with chest pain; history of hypertension; hypercholesterolemia; coronary artery disease, status post stent; supraventricular tachycardia, status post ablation recommendation but the patient has refused. The patient has known history of supraventricular tachycardia. The patient has outpatient heddle machine operator, Dr. Raines. The patient is admitted today in the morning as he had chest pain with tachycardia. Transferred to the unit. Seen by me in the unit. Has discussion done with the hospitalist. History of hypertension. The patient had multiple previous visits in the hospital for supraventricular tachycardia. He initially agreed but then refuses. Recommended to continue medical therapy. If no further supraventricular tachycardia, the patient can be discharged to follow up. The patient still undecided even after multiple discussions over the last few years, but needed to be ablation. Risks and benefits were explained to the patient by Dr. Cb Nguyen, even myself. I have discussion done with the patient. Repeat labs. We will follow up. Mandy Che MD
[2018-06-09 06:03] LABS: MEAN CELL VOLUME 86.6 fL (80.0-94.0); MEAN CORPUSCULAR HEMOGLOBIN 28.9 pg (27.0-31.0); MEAN CORPUSCULAR HGB CONC 33.3 g/dL (33.0-37.0); MEAN PLATELET VOLUME 8.1 fL (7.2-11.7); RBC 5.2 Mil/uL (4.40-5.90); RED CELL DISTRIBUTION WIDTH 14.3 % (11.5-14.5); WHITE BLOOD COUNT 12.2 K/uL (4.8-10.8)
[2018-06-09 06:19] LABS: IRON 37 ug/dL (49-181)
[2018-06-09 06:21] LABS: BLOOD UREA NITROGEN 20 mg/dL (9-20); CALCIUM 9.5 mg/dl (8.6-10.4); GFR NON-AFRICAN AMERICAN > 60
[2018-06-09 06:29] LABS: % IRON SATURATION 14 (20-55); TOTAL IRON BINDING CAPACITY 272 ug/dL (250-450)
[2018-06-09] MEDS: Levothyroxine 50 MCG TAB PO SCH (06:59)
[2018-06-09 07:27] LABS: FOLATE 11.6 ng/mL
--- NOTE | 2018-06-09 07:40 | HP ---
The patient was seen and examined at the bedside on 06/07/2018. CHIEF COMPLAINT: Chest pain. HISTORY OF PRESENT ILLNESS: The patient is a 73-year-old male with history of coronary artery disease, cardiac stenting, hypertension, hypercholesterolemia, needed ablation in the past due to palpitation, on the day of admission, he had palpitation and chest pain. According to the patient, last month he had almost four severe episodes . He gets chest pressure and palpitation, which resolved with deep breathing or exercise . He states that on the day of admission, the patient had several attempts to do maneuver but without success. Upon arrival in the ED, the patient was found to have heart rate of 150, and after the patient coughed a few times, symptoms and heart rate resolved. The patient denies hematuria, hematochezia. No fever, no chills. We admitted the patient and called cardiology consult. PAST MEDICAL HISTORY: As above. Iron-deficiency anemia, arthritis, asthma. He used to be heavy smoker. Now quit 17 years ago. Coronary artery disease, cardiac arrhythmias, fracture of left arm, hypertension, hypercholesterolemia. SURGICAL HISTORY: Coronary stents four times. FAMILY HISTORY: Father and mother noncontributory. HABITS: Tobacco, yes. Alcohol, quit seven years ago. Substance abuse, no. REVIEW OF SYSTEMS: The patient was seen and examined at the bedside. Looking comfortable. No fever. No chills. No hematuria or hematochezia. No headache, no dizziness at that moment, no chest pain, no palpitations. PHYSICAL EXAMINATION: VITAL SIGNS: Temperature 98.6, pulse 75, respiratory rate 20, blood pressure 107/70. HEENT: Head normocephalic, atraumatic. Eyes: PERRLA. Extraocular movements intact. Conjunctivae clear. Nose patent. Mucous membranes moist. NECK: Supple. No carotid bruit. No JVD or thyromegaly. CHEST: Bilaterally symmetrical. HEART: S1, S2 positive. LUNGS: Clear to auscultation. ABDOMEN: Soft. Bowel sounds present. No organomegaly. EXTREMITIES: No edema. No cyanosis. NEUROLOGICAL: The patient awake, alert. Moving all four extremities. No focal deficit. LABORATORY DATA: White blood cell 10.8, hemoglobin 14.6, hematocrit 43.8, platelets 101. Sodium 135, potassium 4, BUN 20, creatinine 0.7, bilirubin 1.4. ASSESSMENT AND PLAN: The patient is a 73-year-old male with abnormal liver function tests, history of multiple medical problems, history of iron-deficiency anemia, arthritis, asthma. He used to be heavy smoker. Coronary artery disease, cardiac arrhythmias, fracture of left arm, hypertension, hypercholesterolemia, coronary stents x4, came with palpitation,and chest pressures. The patient was offered ablation. He refused but still thinking, and he learnt how to fix his heart by Valsalva, but on the day of admission, even that maneuver was not working. That is why he came into the hospital. We called the cardiology consult. Repeat labs. We will follow up. Mandy Che MD [id number]
[2018-06-09] MEDS: Enoxaparin 80 mg Syringe SC SCH ×2 (09:57→21:28)
[2018-06-09] MEDS: Ranolazine 500 mg Extended Release Tablets PO SCH ×2 (09:57→17:28)
--- NOTE | 2018-06-09 12:14 | CARD ---
APPROVED REPORT Date of service: 06/08/2018 EKG Measurement Heart [id number] <Conclusion> Supraventricular tachycardia Inferior infarct, age undetermined Abnormal ECG
[2018-06-09 13:15] VITALS: RESP 20
--- NOTE | 2018-06-09 20:29 | PN ---
DATE: 06/09/2018 SUBJECTIVE: The patient is 73-year-old male. The patient is seen and examined on the bedside on 06/09/2018. Looking comfortable. No fever. No chills. No hematuria or hematochezia. No headache or dizziness. No chest pain. No palpitation. PHYSICAL EXAMINATION: VITAL SIGNS: Temperature 97.8, pulse 52, blood pressure 127/78, and respiratory rate 18. HEENT: Head; normocephalic and atraumatic. Eyes; PERRLA. Extraocular muscles intact. Conjunctivae clear. Nose patent. Mucous membranes moist. NECK: Supple. No carotid bruit. No JVD or thyromegaly. CHEST: Bilaterally symmetrical. HEART: S1 and S2 positive. LUNGS: Clear to auscultation. ABDOMEN: Soft. Bowel sounds present. No organomegaly. EXTREMITIES: No edema. No cyanosis. NEUROLOGICAL: The patient is awake and alert. Moving all four extremities. No focal deficit. MEDICATIONS: Coreg, losartan, Crestor, Flomax, Lovenox, Nitrostat, Plavix, Ranexa, and Synthroid. LABORATORY DATA: White blood cells 12.2, hemoglobin 15, hematocrit 45.1, platelets 99. Sodium 137, potassium 4, BUN 20, creatinine 0.8, glucose 130, and iron 37. ASSESSMENT AND PLAN: Ms. Hedy Knott is a 73-year-old male with leukocytosis, improving, iron deficiency, abnormal liver function test, came with chest pain, hypotension, hypercholesterolemia, coronary artery disease, status post stent, supraventricular tachycardia, status post ablation recommendation but the patient refused. Still medical housekeeper is recommending ablation. Convinced the patient to go with the recommendation, supraventricular tachycardia. The patient's private medical housekeeper Dr. Raines. Now, he is followed up with Dr. Hector Pierson. Meanwhile, continue present treatment. Repeat labs. We will follow up. Mandy Che MD
[2018-06-10] MEDS: Levothyroxine 50 MCG TAB PO SCH (05:39)
[2018-06-10 08:23] VITALS: O2SAT 96
[2018-06-10] MEDS: Ranolazine 500 mg Extended Release Tablets PO SCH ×2 (09:44→17:14)
[2018-06-10] MEDS: Enoxaparin 80 mg Syringe SC SCH (09:44)
--- NOTE | 2018-06-10 12:48 | CARD ---
APPROVED REPORT Date of service: 06/07/2018 EKG Measurement Heart [id number] <Conclusion> Normal sinus rhythm Normal ECG
[2018-06-10 15:39] VITALS: TEMP 97.9
[2018-06-10 16:20] VITALS: PULSE 65
--- NOTE | 2018-06-10 16:29 | CP.PCM.PN ---
Subjective - Date & Time of Evaluation Date of Evaluation: 06/10/18 Time of Evaluation: 16:29 - Subjective Subjective: alert , oriented, no sob or chest pains, ambulatory. Objective - Vital Signs/Intake and Output Vital Signs (last 24 hours): Temp Pulse Resp BP Pulse Ox 97.9 F 65 20 126/75 96 06/10/18 15:00 06/10/18 16:18 06/10/18 15:00 06/10/18 15:00 06/10/18 15:00 Intake and Output: 06/10/18 06/10/18 06:59 18:59 Intake Total 200 Balance 200 - Medications Medications: Current Medications Carvedilol (Coreg) 25 mg PO BID [facility] Last Admin: 06/10/18 09:47 Dose: Not Given Clopidogrel Bisulfate (Plavix) 75 mg PO DAILY [facility] Last Admin: 06/10/18 09:45 Dose: 75 mg Enoxaparin Sodium (Lovenox) 80 mg SC Q12 [facility] Last Admin: 06/10/18 09:44 Dose: 80 mg Levothyroxine Sodium (Synthroid) 50 mcg PO DAILY@0630 [facility] Last Admin: 06/10/18 05:39 Dose: 50 mcg Losartan Potassium (Cozaar) 50 mg PO DAILY [facility] Last Admin: 06/10/18 09:49 Dose: 50 mg Nitroglycerin (Nitrostat Sl Tab) 0.4 mg SL Q5M PRN PRN Reason: Other Last Admin: 06/08/18 08:35 Dose: 0.4 mg Ranolazine (Ranexa) 500 mg PO BID [facility] Last Admin: 06/10/18 09:44 Dose: 500 mg Rosuvastatin Calcium (Crestor) 5 mg PO HS [facility] Last Admin: 06/09/18 21:23 Dose: 5 mg Tamsulosin HCl (Flomax) 0.4 mg PO DAILY [facility] Last Admin: 06/10/18 09:44 Dose: 0.4 mg - Labs Labs: 06/09/18 05:47 06/09/18 05:47 PT 14.2 SECONDS (9.7-12.2) H 06/08/18 08:29 INR 1.3 06/08/18 08:29 APTT 33.0 SECONDS (21-34) 06/08/18 08:29 Assessment and Plan - Assessment and Plan (Free Text) Assessment: Patient admitted with chest pain, SVT, seen and examined. Alert and orientedx3, ambulatory, no sob or chest pains. Patient apparently was refusing for ablation advised by the cardiologyst, but says now he wants to get it done. He doesn't want to wait and the procedure needs pre-approval from the insurance. Discussed with DR hCe and DR Nguyen, advised to follow up with DR Nguyen in the office and will arrange for the procedure at earliest convenience.
[2018-06-10 17:15] VITALS: BP 111/69
== END 2018-06-10 18:01 | disposition home or self-care (01) | DRG 310 ==
LOC: C.ER 10:40 → C.9E 12:53 → C.6T 13:57 → C.9E 13:58 → C.5S 14:24 → C.9I 06-08 08:43 → OBSVTOIN 06-08 11:33 → C.5S 06-09 10:49
PROVIDERS: ADMIT Internal Medicine; ATTEND Internal Medicine
DX: I47.1 Supraventricular tachycardia (principal); I10 Essential (primary) hypertension; I25.10 Atherosclerotic heart disease of native coronary artery without angina pectoris; J44.9 Chronic obstructive pulmonary disease, unspecified; K21.9 Gastro-esophageal reflux disease without esophagitis; E78.00 Pure hypercholesterolemia, unspecified; Z95.5 Presence of coronary angioplasty implant and graft; D50.9 Iron deficiency anemia, unspecified; M19.90 Unspecified osteoarthritis, unspecified site; D72.829 Elevated white blood cell count, unspecified; Z87.891 Personal history of nicotine dependence